=== PATIENT | female | born 1985 | race Caucasian/White ===

== ENCOUNTER 2019-08-04 05:14 | Emergency (ER) | payer OTHER, SELFPAY ==
[2019-08-04 05:17] VITALS: BP 122/105; PULSE 90; RESP 20; TEMP 36.5; O2SAT 98
[2019-08-04 06:25] VITALS: BP 143/91; PULSE 92; RESP 22; O2SAT 96
[2019-08-04 06:34] VITALS: PULSE 82; RESP 18; O2SAT 99
[2019-08-04] MEDS: predniSONE 20 MG TABLET 60 MG PO (06:54)
[2019-08-04] MEDS: ALBUTEROL SULFATE NEB 2.5 MG/0.5 ML INH 10 MG INHALATION (06:54)
[2019-08-04] MEDS: IPRATROPIUM BR 0.02% INH SOLN 0.5 MG/2.5 ML VIAL 1 MG INHALATION (06:55)
[2019-08-04 08:00] VITALS: BP 142/80; PULSE 92; RESP 19; O2SAT 100
--- NOTE | 2019-08-04 09:38 | ED.GENADULT ---
HPI - General Adult General Chief complaint: Asthma Stated complaint: ASTHMA Time Seen by Provider: 08/04/19 06:21 Source: patient Mode of arrival: ambulatory Limitations: no limitations History of Present Illness HPI narrative: 34-year-old with a history of asthma here with complaints of shortness of breath and cough for past few days. Patient states that she has been using albuterol inhaler with no relief. She denies any fever or chills. Cough is nonproductive. Onset (ago): day(s) (2) Location: chest Severity: moderate Relieving factors: none Exacerbating factors: none Associated symptoms: denies other symptoms Related Data Allergies Allergy/AdvReac Type Severity Reaction Status Date / Time latex Allergy Unknown Unknown Verified 08/04/19 05:19 Review of Systems Review of Systems: All systems reviewed & are unremarkable except as noted in HPI and below Constitutional: Constitutional: Reports no additional constitutional complaints Eyes: Eyes: Reports no additional eye complaints ENT: Reports system reviewed and no additional complaints, except as documented Cardiovascular: Cardiovascular: Reports no additional cardiovascular complaints Respiratory: Respiratory: Reports no additional respiratory complaints Gastrointestinal: Gastrointestinal: Reports no additional gastrointestinal complaints [facility] Family History Family History (Updated 01/14/16 @ 23:21 by DOCTOR UNKNOWN) Mother Hypertension Family history of skin conditions Sibling Patient's brother is in good health Social History Social History Smoking status: Former smoker Smoking end date: 06/18/09 Alcohol intake: never Gender identity (if verbalized by the patient): Female Exam Narrative: Exam Narrative: GENERAL: Well-appearing, well-nourished, and in no acute distress. HEAD: Normo cephalic, atraumatic. EYES: PERRLA and EOMI. ENT: Nares clear, no rhinorrhea or epistaxis. Mucous membranes moist. NECK: Supple. CHEST: Bilateral wheeze on auscultation HEART: Regular rate and rhythm. No murmur heard. Normal peripheral pulses. ABDOMEN: Soft, non tender, nondistended, normal active bowel sounds. EXTREMITIES: Normal range of motion. No edema. SKIN: Warm, dry, no rash. NEURO: No focal deficits. Alert and oriented x3. PSYCH: Normal mood and affect. Course Course Emergency Course: Patient states she is feeling much better after 1 hour long treatment with albuterol and Atrovent. I reexamined the patient very faint wheeze on the right side left is clear. She does feel comfortable going home. I advised her to take prednisone as prescribed. And continue her home albuterol as needed. Vital Signs Vital signs: Vital Signs Temperature 36.5 C 08/04/19 05:17 Pulse Rate 90 08/04/19 05:17 Respiratory Rate 20 08/04/19 05:17 Blood Pressure 122/105 H 08/04/19 05:17 Pulse Oximetry 98 08/04/19 05:17 Temperature 36.5 C 08/04/19 05:17 Pulse Rate 92 08/04/19 08:00 Respiratory Rate 19 08/04/19 08:00 Blood Pressure 142/80 H 08/04/19 08:00 Pulse Oximetry 100 08/04/19 08:00 Medical Decision Making Vital Signs Vital Signs: Vital Signs Temperature 36.5 C 08/04/19 05:17 Pulse Rate 90 08/04/19 05:17 Respiratory Rate 20 08/04/19 05:17 Blood Pressure 122/105 H 08/04/19 05:17 Pulse Oximetry 98 08/04/19 05:17 Temperature 36.5 C 08/04/19 05:17 Pulse Rate 92 08/04/19 08:00 Respiratory Rate 19 08/04/19 08:00 Blood Pressure 142/80 H 08/04/19 08:00 Pulse Oximetry 100 08/04/19 08:00 Lab Data Labs: Influenza A Screen Negative Reference Range: Negative Influenza B Screen Negative Reference Range: Negative Discharge Plan Discharge Clinical Impression: Asthma with acute exacerbation Patient Disposition: Home, Self-Care Condition: Stable Instructions: Moderate and Severe Persistent Asthma (ED) Prescriptions: Tristen matos
[2019-08-04 09:54] VITALS: BP 129/93; PULSE 94; RESP 18; O2SAT 97
== END 2019-08-04 09:56 | disposition home or self-care (01) ==
PROVIDERS: Emergency Provider Family Medicine; PCP Family Medicine
DX: J45.901 Unspecified asthma with (acute) exacerbation (principal); Z87.891 Personal history of nicotine dependence
CPT/HCPCS: 87804; 99283; J7512

== ENCOUNTER 2020-08-08 13:12 | Observation (INO) | payer OTHER, SELFPAY ==
[2020-08-08] VITALS (15 sets, daily range): BP systolic 121–152; BP diastolic 73–100; PULSE 84–124; RESP 16–24; TEMP 36.6; O2SAT 92–100; BMI 45.6
--- NOTE | ~2020-08-08 | CT_ITS ---
EXAMINATION: CTA chest PE protocol EXAM DATE: 08/10/2020 10:33 INDICATION: Shortness of breath, tachycardia with asthma r/o PE. TECHNIQUE: Spiral CTA of the chest (pulmonary arteries) was performed with 100 cc Omnipaque 350 intr avenous contrast injection. Images were acquired during the pulmonary arterial phase. Coronal maxi mum intensity projection 3D-reconstructions were created by the technologist on dedicated workstation . Axial, coronal and sagittal reformatted images were reviewed. The dose-length product (DLP) for t his examination was 989.94 mGy-cm. The exposure was tailored according to patient size (auto mA exp osure control), and iterative reconstruction (ASIR) was used as additional dose reduction technique. Comparison is made to prior examination from 04/22/2016. FINDINGS: Pulmonary arteries are well opacified and without intraluminal filling defects. No thora cic aortic dissection. The right middle lobe is completely collapsed. There is subsegmental lingular and right lower lobe atelectasis and multi segmental left lower lobe atelectasis. There was similar appearance to scan in 2016, findings could be chronic or have recurred. There are no pleural or peric ardial effusions. Tracheobronchial tree is patent. There is no mediastinal, hilar or axillary lym phadenopathy. There is no pneumothorax. Heart normal in size. No evidence of coronary arterial calcification. Upper abdomen is unremarkable. There is mild thoracic spondylosis without osteoblas tic or osteolytic lesions identified. IMPRESSION: 1. Substantial multifocal basilar atelectasis without evidence of superimposed pneumonia. 2. No pulmonary emboli suspected. Reviewed, dictated and finalized at location B. ONAL FINANCIAL ADVISOR
--- NOTE | ~2020-08-08 | XR_ITS ---
EXAMINATION: XR chest 2V EXAM DATE: 08/09/2020 13:36 INDICATION: Asthma exacerbation. Shortness of breath. TECHNIQUE: Frontal and lateral projections of the chest obtained and reviewed. Comparison is made to prior examination from 01/26/2019. FINDINGS: Bibasilar airspace disease probably atelectasis given the volume loss. Pneumonia not exclu dable. No pneumothorax or pleural effusion. Cardiomediastinal silhouette is normal. There are no osse ous abnormalities identified. IMPRESSION: Low lung volume and bibasilar opacities more likely atelectasis than pneumonia. Reviewed, dictated and finalized at location B. TY COUNSELOR IMPRESSION: Low lung volume and bibasilar opacities more likely atelectasis hitesh n pneumonia.
[2020-08-08] MEDS: methylPREDNISolone SOD SUCC 125 MG VIAL IV PUSH (13:48)
[2020-08-08] MEDS: MAGNESIUM SULF 2 GM/WATER 50ML 2 GM/50 ML BAG IVPB (13:49)
[2020-08-08] MEDS: ALBUTEROL SULFATE NEB 2.5 MG/0.5 ML INH 10 MG INHALATION (13:57)
[2020-08-08] MEDS: IPRATROPIUM BR 0.02% INH SOLN 0.5 MG/2.5 ML VIAL 1 MG INHALATION (13:58)
--- NOTE | 2020-08-08 14:42 | ED.ASTHMA ---
HPI - Asthma General Chief Complaint: Asthma Stated Complaint: issues with my asthma Time Seen by Provider: 08/08/20 13:35 Source: patient Mode of arrival: ambulatory Limitations: no limitations History of Present Illness HPI Narrative: A 35-year-old female comes into the emergency department today with complaints of an asthma exacerbation. Patient states that she has been taking her breathing treatments to not much improvement. Patient had used it several times yesterday. She notes that she has been using it continuously today and still feeling very short of breath. Patient denies any fevers, chills, body aches or headaches. Related Data Allergies Allergy/AdvReac Type Severity Reaction Status Date / Time latex Allergy Unknown Unknown Verified 08/08/20 13:31 Review of Systems Review of Systems: Narrative: CONSTITUTIONAL: Denies fever, chills, or sweats. EYES: Denies visual changes, redness, or discharge. ENT: Denies rhinorrhea, congestion, sore throat, or otalgia. CARDIOVASCULAR: Denies chest pain, palpitations, or edema. RESPIRATORY: Denies cough. Endorses shortness of breath GASTROINTESTINAL: Denies abdominal pain, nausea, vomiting, or diarrhea. GENITOURINARY: Denies dysuria or hematuria. SKIN: Denies rash or itching. MUSCULOSKELETAL: Denies back pain, joint pain, or myalgia. NEUROLOGIC: Denies headache, numbness, dizziness, or weakness. PSYCHIATRIC: Denies anxiety or depression. [facility], [facility] Family History Family History Mother Hypertension Family history of skin conditions Sibling Patient's brother is in good health Social History Social History Smoking status: Former smoker Smoking end date: 06/18/09 Alcohol intake: never Gender identity (if verbalized by the patient): Female Exam Narrative: Exam Narrative: GENERAL: Well-appearing, well-nourished, and in mild respiratory distress. HEAD: Normocephalic, atraumatic. EYES: PERRLA and EOMI. ENT: Nares clear, no rhinorrhea or epistaxis. Mucous membranes moist. NECK: Supple. No adenopathy or masses. No carotid bruits or JVD CHEST: Respiratory distress, tachypnea, diminished lung sounds diffusely, wheezing heard throughout. HEART: Regular rate and rhythm. No murmur heard. Normal peripheral pulses. ABDOMEN: Soft, nontender, nondistended, normal active bowel sounds. EXTREMITIES: Normal range of motion. No edema. SKIN: Warm, dry, no rash. NEURO: No focal deficits. Alert and oriented x3. PSYCH: Normal mood and affect. Course Consultations Consultation #1: Case discussed with ABDON Campos for hospitalist services. Patient still feeling very short of breath in spite of hour-long breathing treatment, Solu-Medrol and magnesium. Feel she would benefit from observation for continued breathing treatments and steroids. Beth after discussion agrees to accept patient for observation. Time: 15:44 Vital Signs Vital signs: Vital Signs Temperature 36.6 C 08/08/20 13:19 Pulse Rate 124 H 08/08/20 13:19 Respiratory Rate 20 08/08/20 13:19 Blood Pressure 122/75 08/08/20 13:19 Pulse Oximetry 92 08/08/20 13:19 Temperature 36.6 C 08/08/20 13:19 Pulse Rate 112 H 08/08/20 15:55 Respiratory Rate 20 08/08/20 15:55 Blood Pressure 132/92 H 08/08/20 15:55 Pulse Oximetry 100 08/08/20 15:55 MDM - Asthma MDM Narrative Medical decision making narrative: In brief this 35-year-old female came into the emergency department with complaints of shortness of breath. Patient appeared to be having an asthma exacerbation. On exam she was in respiratory distress. Patient given an hour-long breathing treatment 10 mg of albuterol and 1 mg of the Pratropium. Patient also given 125 mg Solu-Medrol and 2 g of IV magnesium. After all this she did have an improvement but was still very wheezy and struggling to breathe. Because of this we will plan for observati
[2020-08-08 16:05] LABS: Basophils Absolute Auto 0.1 K/mm3 (0.0-0.1); Eosinophils Absolute Auto 0.5 K/mm3 (0-0.3); Eosinophils Percent Auto 3.8 % (0-4.4); Hematocrit 50.7 % (37.0-47.0); Hemoglobin 16.6 g/dL (12.0-15.0); Immature Granulocyte Absolute 0.03 K/mm3 (0.00-0.031); Immature Granulocyte Percent A 0.2 % (0-0.5); Lymphocytes Absolute Auto 0.92 K/mm3 (0.9-3.2); Lymphocytes Percent Auto 7.6 % (18.3-44.2); Mean Corpuscular HGB Conc 32.7 g/dl (32-36); Mean Corpuscular Hemoglobin 29.3 pg (26-34); Mean Corpuscular Volume 89.4 fl (80-100); Monocytes Absolute Auto 0.3 K/mm3 (0.1-0.6); Monocytes Percent Auto 2.2 % (2.6-8.5); Neutrophils Absolute Auto 10.3 K/mm3 (1.3-6.7); Neutrophils Percent Auto 85.2 % (45.5-73.1); Platelet Count Result 349 k/mm3 (150-375); Red Blood Count 5.67 M/mm3 (4.2-5.4); White Blood Count 12.1 K/mm3 (4.5-10.0)
[2020-08-08 16:18] LABS: Anion Gap 6 mmol/L (8-16); Blood Urea Nitrogen 11 mg/dL (7-17); Calcium 9.4 mg/dL (8.4-10.2); Carbon Dioxide 29 mmol/L (22-30); Chloride 106 mmol/L (98-107); Estimated CRCL calculation 88 ml/min; Estimated Glomerular Filt Rate 51; Glucose 109 mg/dL (65-105); Magnesium 2.6 mg/dL (1.6-2.3); Potassium 4.8 mmol/L (3.4-5.0); Sodium 141 mmol/L (137-145)
--- NOTE | 2020-08-08 19:36 | ADMGEN ---
This patient, Abena Chandra, was admitted to Medical Room 258-. Patient/family oriented to hospital policies and general routines including ID bracelet, bed and alarms, visiting hours, pain management, procedures, bathroom and other care routines, personal items, smoking policy, room service/diet, and visiting hours. Information on how to activate the Rapid Response Team has been discussed. Patient/Family are encouraged to report perceived risks to care and to ask questions if they do not understand what they are told or what they should do.
[2020-08-08] MEDS: ALBUTEROL SULFATE NEB 2.5 MG/0.5 ML INH 5 MG INHALATION ×2 (20:15→23:53)
--- NOTE | 2020-08-08 20:15 | PM.IMHP ---
H&P: HPI History of Present Illness Date/Time: 08/08/20 20:15 Chief Complaint: Shortness of breath. Narrative: This is a 35-year-old female with asthma who presented to the emergency department earlier today from home with complaints of shortness of breath. Her asthma is typically well controlled however she reports 2 episodes of bronchitis in the recent months, once in April 2020 and the other just last month in which she was treated with steroids. She has been using her nebulizer once a day since that time and has been doing okay up until last evening when she began to wheeze pretty significantly. She had a cough throughout most of the night and slept poorly because of that. This morning she received no help from her nebulizer and thus she came in for evaluation. Steroids, magnesium sulfate, and a continuous nebulizer given in the emergency department did improve her symptoms however she continues to have diffuse wheezing and is still somewhat short of breath and as such she is being admitted for further treatment. She does suffer from chronic sinus issues and postnasal drip, which is unchanged. She has had some mild chest tightness with the wheezing but nothing significant. She has not had fever, chills, sweats, pleuritic pain, palpitations, nausea, or vomiting. No dysphagia or concerns for aspiration. No sick contacts or exposure to COVID-19. She has never been hospitalized or intubated for her asthma. Review of Systems Review of Systems: Narrative: Twelve systems were reviewed with pertinent positives and negatives as per HPI. She suffers from migraine headaches and gets those about 4 times per month. Last menstrual period was 07/20/2020. Except as documented, all other systems were reviewed and are negative. [facility] Past Medical History Medical History (Updated 08/08/20 @ 23:07 by Beth Kaye PA-C) Asthma Migraines Surgical History Surgical History (Updated 08/08/20 @ 23:03 by Beth Kaye PA-C) History of incision and drainage Flank abscess. Family History Family History Mother Family history of skin conditions Hypertension Graves disease Sibling Patient's brother is in good health Father Hypertension Son Asthma Daughter Eczema Social History Social History (Updated 08/08/20 @ 23:03 by Beth Kaye PA-C) Social History: Surrogate decision maker: Yuniel Chandra, . Code status: Full code. Smoking packs per day: 0.5 Smoking cigarettes per day: 10.0 Years smoked: 9 Smoking pack-years: 4.50 Smoking status: Former smoker Tobacco type: cigarettes Smoking end date: 06/18/09 Alcohol intake: never Additional living arrangements comments: The patient lives in [place] with her , 2 children (3 and 7), and her mother. Additional occupation/education comments: [employer] mother. Gender identity (if verbalized by the patient): Female Spiritual care concerns: No Meds Home Medications and Allergies Home Medications Medication Instructions Recorded Confirmed Type albuterol sulfate 2.5 mg CONTINUOUS NEBULIZATION QID 08/08/20 08/08/20 History PRN albuterol sulfate [Ventolin HFA] 2 puff INHALATION DAILY PRN 08/08/20 08/08/20 History budesonide-formoterol [Symbicort] 2 puff INHALATION BID 08/08/20 08/08/20 History cetirizine [Zyrtec] 10 mg PO DAILY 08/08/20 08/08/20 History diphenhydramine HCl [Benadryl 25 mg PO HS 08/08/20 08/08/20 History Allergy] montelukast 10 mg HS 08/08/20 08/08/20 History topiramate 50 mg PO BID 08/08/20 08/08/20 History Allergies Allergy/AdvReac Type Severity Reaction Status Date / Time latex Allergy Unknown Unknown Verified 08/08/20 19:43 Vital Signs Vital Signs - 24 hr 08/08/20 13:19 08/08/20 13:30 08/08/20 13:49 Temperature 97.8 F Pulse Rate 124 H 122 H Respiratory Rate 20 20 Blood Pressure 122/75 133/100 H Pulse Ox
[2020-08-08] MEDS: IPRATROPIUM BR 0.02% INH SOLN 0.5 MG/2.5 ML VIAL INHALATION ×2 (20:16→23:53)
[2020-08-08 23:54] LABS: Alveolar/Arterial O2 Gradient 53.9 mmHg; Base Excess ABG -0.3 mEq/l (+/-2.0); Carboxyhemoglobin 0.4 % THb (0-2.0); Fractional Inspired Oxygen 21 %; HCO3 ABG 23.6 mEq/l (22.0-26.0); Methemoglobin ABG 0.3 %THb (0-1.5); Oxygen Content ABG 19.8 %vol (16.0-22.0); Oxyhemoglobin 88.4 % THb (90.0-100.0); PCO2 ABG 36.5 mmHg (35.0-45.0); PO2 ABG 52.1 mmHg (80.0-100.0); PO2 FiO2 Ratio Arterial Blood 2.48 %; Reduced Hemoglobin 10.9 %THb (0-5.0); pH ABG 7.428 (7.350-7.450)
[2020-08-08 23:55] LABS: Device ROOM AIR; Modified Allen's Test Pass; Site Drawn RIGHT RADIAL
[2020-08-09] VITALS (18 sets, daily range): BP systolic 130–131; BP diastolic 66–78; PULSE 88–138; RESP 16–22; TEMP 36.3–37.2; O2SAT 90–94
[2020-08-09] MEDS: methylPREDNISolone SOD SUCC 125 MG VIAL 60 MG IV PUSH ×2 (00:08→05:36)
[2020-08-09] MEDS: SODIUM CHLORIDE 0.9% IV 1,000 ML 100 ML IV CONT (00:08)
[2020-08-09] MEDS: ALBUTEROL SULFATE NEB 2.5 MG/0.5 ML INH 5 MG INHALATION ×2 (04:32→10:04)
[2020-08-09] MEDS: IPRATROPIUM BR 0.02% INH SOLN 0.5 MG/2.5 ML VIAL INHALATION ×4 (04:32→21:45)
[2020-08-09 05:41] LABS: Basophils Percent Auto 0.2 % (0.2-1.2); Hematocrit 47.4 % (37.0-47.0); Hemoglobin 15.4 g/dL (12.0-15.0); Immature Granulocyte Percent A 0.8 % (0-0.5); Lymphocytes Absolute Auto 1.27 K/mm3 (0.9-3.2); Mean Corpuscular HGB Conc 32.5 g/dl (32-36); Mean Corpuscular Hemoglobin 28.6 pg (26-34); Mean Corpuscular Volume 87.9 fl (80-100); Mean Platelet Volume 9.9 fl (7.4-10.4); Monocytes Absolute Auto 0.1 K/mm3 (0.1-0.6); Monocytes Percent Auto 0.7 % (2.6-8.5); Neutrophils Absolute Auto 11.2 K/mm3 (1.3-6.7); Neutrophils Percent Auto 88.3 % (45.5-73.1); Platelet Count Result 363 k/mm3 (150-375); Red Blood Count 5.39 M/mm3 (4.2-5.4); Red Cell Distribution Width 13.8 % (11.5-14.5); White Blood Count 12.7 K/mm3 (4.5-10.0)
[2020-08-09 05:52] LABS: Anion Gap 6 mmol/L (8-16); Blood Urea Nitrogen 11 mg/dL (7-17); Calcium 9.4 mg/dL (8.4-10.2); Carbon Dioxide 22 mmol/L (22-30); Chloride 110 mmol/L (98-107); Estimated CRCL calculation 130 ml/min; Estimated Glomerular Filt Rate > 60; Glucose 142 mg/dL (65-105); Sodium 138 mmol/L (137-145)
[2020-08-09 07:19] LABS: Potassium 4.1 mmol/L (3.4-5.0)
--- NOTE | 2020-08-09 10:00 | PC.NURSE ---
Patient has been tachycardic on monitor. Jovana COPPOLA here on rounds and aware of elevated heartrate.
--- NOTE | 2020-08-09 10:49 | ECG_ITS ---
Measurements Intervals [place] Rate: 113 P: 46 SC: 152 QRS: 5 QRSD: 84 T: 23 QT: 283 QTc: 389 Interpretive Statements SINUS TACHYCARDIA BORDERLINE T WAVE ABNORMALITY- INFERIOR LEADS BASELINE ARTIFACT- I, II, III, AVR, AVL, AVF, V1, V6 ABNORMAL ECG Electronically Signed On 08-09-2020 11:22:24 MINE PROMOTOR by Benji Pal D.O.
--- NOTE | 2020-08-09 10:51 | PM.IMPN ---
Progress Note: A&P Assessment and Plan (1) Asthma with acute exacerbation: Qualifiers: Asthma persistence: persistent Asthma severity: severe Qualified Code(s): J45.51 - Severe persistent asthma with (acute) exacerbation Code(s): J45.901 - Unspecified asthma with (acute) exacerbation Status: Acute Assessment and Plan: Clinically it appears the patient is undergoing asthma exacerbation -her lung exam is much improved compared to the prior notes, no wheezing today -PFTs are still low at 320 with a predicted of 478 -she is on Solu-Medrol but I will decrease this to 40 mg b.i.d. and hopes to transition to oral tomorrow -will check chest x-ray -will switch albuterol to Xopenex due to sinus tachycardia -continue Symbicort -encouraged patient to reestablish with her pulmonology group -PE seems less likely. Will obtain EKG, decreased steroids, and stop albuterol. If she continues to be tachycardic with these changes, consider D-dimer or CTA. She has no history of clotting. (2) Sinus tachycardia: Code(s): R00.0 - Tachycardia, unspecified Status: Acute Assessment and Plan: Likely due to asthma exacerbation and treatment -will check EKG -monitor on telemetry -see above (3) Polycythemia: Code(s): D75.1 - Secondary polycythemia Status: Acute Assessment and Plan: Noted on labs and appears to be new since 2019 -doubt it is due to chronic hypoxia but could be -would recommend follow-up with wedding cake designer outpatient (4) Elevated serum creatinine: Code(s): R79.89 - Other specified abnormal findings of blood chemistry Status: Acute Assessment and Plan: Resolved (5) Migraines: Code(s): G43.909 - Migraine, unspecified, not intractable, without status migrainosus Status: Inactive Assessment and Plan: No acute headache, continue Topamax Time Spent With Patient Time with patient: 25 - 35 minutes Subjective Date/time seen: 08/09/20 10:51 Interval history: Pt is a 35-year-old female here with an asthma exacerbation. Patient was seen today and states she is feeling much better. She does not feel like she is wheezing as much and feels like she can't take a deep breath. She states she has a history of hospitalizations for asthma but does not see a head tennis coach anymore since her last one was Dr. Milligan. Pt denies nausea, vomiting, fevers, chills, constipation, diarrhea, chest pain, sob, or abdominal pain. She states she has never had a history of blood clots and does not have any palpitations at this time. She says she does peak flows at home. Review of Systems Review of Systems: All systems reviewed & are unremarkable except as noted in HPI and below Exam Narrative: Exam Narrative: General: Overweight pt resting in bed in NAD HEENT: normocephalic Neck: supple Neuro: Alert and oriented x4 CV:Sinus tachycardia that appears to be NSR on telemetry. Sinus tachy up to 150 but averages 120-130. Seems to be constant and not really correlating with albuterol times Resp:CTA with no wheezing. Breath sounds bilaterally. Pt able to speak in full sentences without conversational dyspnea Abd: Soft, non distended. No pain to palpation. Positive bowel sounds Extremities: No swelling, erythema, or pain to palpation. Objective Data Vital Signs Vital Signs: Vital Signs - 24 hr 08/08/20 13:19 08/08/20 13:30 08/08/20 13:49 Temperature 97.8 F Pulse Rate 124 H 122 H Respiratory Rate 20 20 Blood Pressure 122/75 133/100 H Pulse Oximetry 92 92 93 08/08/20 13:58 08/08/20 14:53 08/08/20 15:17 Temperature Pulse Rate 121 H 96 106 H Respiratory Rate 24 H 16 22 H Blood Pressure 152/73 H 135/97 H Pulse Oximetry 96 96 08/08/20 15:55 08/08/20 17:02 08/08/20 17:42 Temperature Pulse Rate 112 H 106 H 111 H Respiratory Rate 20 22 H 22 H Blood Pressure 132/92 H 121/86 124/96 H Pulse Oximetry 100 100
[2020-08-09] MEDS: TOPIRAMATE 25 MG TABLET 50 MG PO ×2 (11:04→20:39)
[2020-08-09 13:38] LABS: Troponin I < 0.012 ng/mL (0.000-0.034)
[2020-08-09] MEDS: LEVALBUTEROL NEB 1.25 MG/3 ML 0.63 MG INHALATION ×2 (14:40→21:48)
--- NOTE | 2020-08-09 15:00 | PC.NURSE ---
HR continues to increase with activity of walking in room or to bathroom. Telemetry noted to show HR in the 160s. Patient denies symptoms. Returned to bed and HR back in the 110s after resting. Called and left a message for Jovana COPPOLA regarding increased heart rate with activity.
[2020-08-09 16:41] LABS: Troponin I < 0.012 ng/mL (0.000-0.034)
[2020-08-09] MEDS: methylPREDNISolone SOD SUCC 40 MG VIAL IV PUSH (20:41)
[2020-08-09] MEDS: MONTELUKAST SODIUM 10 MG TABLET BY MOUTH (20:42)
[2020-08-09 21:19] LABS: Troponin I < 0.012 ng/mL (0.000-0.034)
[2020-08-10] VITALS (8 sets, daily range): BP systolic 115; BP diastolic 61; PULSE 87–102; RESP 16–20; TEMP 36.1; O2SAT 93–94
[2020-08-10] MEDS: IPRATROPIUM BR 0.02% INH SOLN 0.5 MG/2.5 ML VIAL INHALATION ×2 (02:56→08:29)
[2020-08-10] MEDS: LEVALBUTEROL NEB 1.25 MG/3 ML 0.63 MG INHALATION ×2 (02:56→08:29)
[2020-08-10 05:43] LABS: Basophils Percent Auto 0.2 % (0.2-1.2); Hemoglobin 14.1 g/dL (12.0-15.0); Lymphocytes Absolute Auto 1.34 K/mm3 (0.9-3.2); Lymphocytes Percent Auto 6.8 % (18.3-44.2); Mean Corpuscular Hemoglobin 28.1 pg (26-34); Mean Corpuscular Volume 87.8 fl (80-100); Mean Platelet Volume 10.4 fl (7.4-10.4); Monocytes Absolute Auto 0.6 K/mm3 (0.1-0.6); Monocytes Percent Auto 3.1 % (2.6-8.5); Neutrophils Absolute Auto 17.4 K/mm3 (1.3-6.7); Neutrophils Percent Auto 88.9 % (45.5-73.1); Platelet Count Result 377 k/mm3 (150-375); Red Blood Count 5.01 M/mm3 (4.2-5.4); Red Cell Distribution Width 14.1 % (11.5-14.5); White Blood Count 19.6 K/mm3 (4.5-10.0)
[2020-08-10] MEDS: methylPREDNISolone SOD SUCC 40 MG VIAL IV PUSH (08:58)
[2020-08-10] MEDS: LORATADINE 10 MG TABLET PO (08:58)
[2020-08-10] MEDS: TOPIRAMATE 25 MG TABLET 50 MG PO (08:59)
[2020-08-10] MEDS: ACETAMINOPHEN/ASPIRIN/CAFFEINE 250-250-65 MG TABLET 1 TABLET PO (11:05)
--- NOTE | 2020-08-10 11:06 | PM.DS ---
DS: Admitting Diagnosis Admitting Diagnosis Admitting Diagnosis: Asthma exacerbation DS: Discharge Diagnosis Discharge Diagnosis (1) Asthma with acute exacerbation: Qualifiers: Asthma persistence: persistent Asthma severity: severe Qualified Code(s): J45.51 - Severe persistent asthma with (acute) exacerbation Code(s): J45.901 - Unspecified asthma with (acute) exacerbation Status: Acute Assessment and Plan: Date of Admission 08/08/20 Date of Discharge/DOS 08/10/20 Ms. Chandra is a pleasant 35yo F with history of asthma who presented to the ED for evaluation of cough, wheezing, and shortness of breath. Chest XR showed low lung volumes and evidence of atelectasis. Clinically her symptoms appeared most consistent with an asthma exacerbation. She was treated with IV steroids and nebulized bronchodilator therapy with which she showed clinical improvement. Continued on her home Symbicort. She had sinus tachycardia that persisted despite weaning steroids and switching albuterol to Xopenex, which prompted a CTA chest to rule out PE. CTA chest demonstrated substantial multifocal basilar atelectasis without evidence of superimposed pneumonia, no evidence of PE. She was improved with the therapy outlined above and was comfortable with plan for discharge home. She was hemodynamically stable for discharge on 08/10/20 with instructions to follow up with her primary care provider as well as re-establish with a amusement machine mechanic. Discharged with tapered course of oral prednisone and she has albuterol nebulizers at home. (2) Sinus tachycardia: Code(s): R00.0 - Tachycardia, unspecified Status: Acute Assessment and Plan: Asymptomatic. Suspect related to acute asthma exacerbation and neb treatments. EKG and cardiac monitoring with telemetry shows sinus tachycardia. CTA chest without evidence of PE. (3) Polycythemia: Code(s): D75.1 - Secondary polycythemia Status: Acute Assessment and Plan: Follow up with PCP for lab monitoring. Hematology referral outpatient if needed. (4) Elevated serum creatinine: Code(s): R79.89 - Other specified abnormal findings of blood chemistry Status: Acute Assessment and Plan: Resolved. (5) Migraines: Code(s): G43.909 - Migraine, unspecified, not intractable, without status migrainosus Status: Inactive Assessment and Plan: Patient had manageable headache day of discharge and was given Excedrin. Maintained on her home Topiramate. DS: Summary Hospital Course Hospital Course: See above. Time Spent with Patient Time attestation: Total time spent providing and/or coordinating discharge services: 40 minutes Exam Narrative: Exam Narrative: General: Female resting comfortably in bed in no acute distress. HEENT: normocephalic, EOMI, oral mucosa moist. Neck: supple Neuro: Alert and oriented x4 CV: Heart rate is tachycardic, rhythm is regular. Telemetry review shows resting HR in low 100s, up to 130s-140s with walking to the bathroom. Resp: Clear to auscultation without wheezing, respirations even and nonlabored, able to speak in full sentences without conversational dyspnea Abd: Soft, non distended. No pain to palpation. Positive bowel sounds Extremities: No swelling, erythema, or pain to palpation. DS: Data Data Completed and Pending Labs on day of discharge: Last Vital Signs Temp 97.0 F L 08/10/20 06:00 Pulse 90 08/10/20 08:40 Resp 18 08/10/20 08:40 BP 115/61 08/10/20 06:00 Pulse Ox 94 08/10/20 08:29 ITS Impressions Chest X-Ray 08/09/20 13:56 IMPRESSION: Low lung volume and bibasilar opacities more likely atelectasis than pneumonia. Chest CTA 08/10/20 10:37 IMPRESSION: 1.
== END 2020-08-10 12:50 | disposition home or self-care (01) ==
LOC: ANHED 17:13 → ANH2MED 18:37
PROVIDERS: Physician Assistant; Admitting Provider Internal Medicine; Emergency Provider Emergency Medicine; PCP Family Medicine; Visit Provider Physician Assistant
DX: J45.51 Severe persistent asthma with (acute) exacerbation (principal); D75.1 Secondary polycythemia; E66.01 Morbid (severe) obesity due to excess calories; G43.909 Migraine, unspecified, not intractable, without status migrainosus; R00.0 Tachycardia, unspecified; Z68.42 Body mass index [BMI] 45.0-49.9, adult; Z87.891 Personal history of nicotine dependence; Z23 Encounter for immunization
CPT/HCPCS: 36415; 36600; 71046; 71275; 80048; 82375; 82805; 83050; 83735; 84484; 85025; 90471; 90653; 93005; 94640; 96365; 96374; 96375; 96376; 99285; A9270; G0008; G0378; J2920; J2930; J3475; J7030; Q9967

== ENCOUNTER 2021-05-07 20:10 | Emergency (ER) | payer OTHER, SELFPAY ==
[2021-05-07 20:17] VITALS: BP 151/73; PULSE 105; RESP 20; TEMP 36.5; O2SAT 97
[2021-05-07] MEDS: IPRATROPIUM BR 0.02% INH SOLN 0.5 MG/2.5 ML VIAL 1.5 MG INHALATION (22:05)
[2021-05-07] MEDS: ALBUTEROL SULFATE NEB 2.5 MG/0.5 ML INH 20 MG INHALATION (22:05)
[2021-05-07 22:06] VITALS: PULSE 112; RESP 18
[2021-05-07] MEDS: predniSONE 20 MG TABLET 40 MG PO (22:19)
--- NOTE | 2021-05-07 23:04 | ED.ASTHMA ---
HPI - Asthma General Chief Complaint: Asthma Stated Complaint: sob Time Seen by Provider: 05/07/21 21:36 Source: patient History of Present Illness HPI Narrative: Patient presents with concern for asthma exacerbation. Reports a history of asthma has flareups requiring ER evaluation in approximately once a year usually around this time and attributes it to the weather change. She has been feeling short of breath and having a cough since yesterday she has been attempting her nebulized therapies at home however did not appear to be effective so she came to the ER for evaluation. She does report she is and is not sure how far along she is but believes she is very early. She has some nausea associated with her she denies any chest pain Related Data Home Medications Medication Instructions Recorded Confirmed albuterol sulfate 2.5 mg CONTINUOUS NEBULIZATION QID 08/08/20 08/08/20 PRN albuterol sulfate [Ventolin HFA] 2 puff INHALATION DAILY PRN 08/08/20 08/08/20 budesonide-formoterol [Symbicort] 2 puff INHALATION BID 08/08/20 08/08/20 cetirizine [Zyrtec] 10 mg PO DAILY 08/08/20 08/08/20 diphenhydramine HCl [Benadryl 25 mg PO HS 08/08/20 08/08/20 Allergy] Allergies Allergy/AdvReac Type Severity Reaction Status Date / Time latex Allergy Unknown Unknown Verified 05/07/21 20:40 Review of Systems Review of Systems: CONSTITUTIONAL: Denies fever, chills, or sweats. EYES: Denies visual changes, redness, or discharge. ENT: Denies rhinorrhea, congestion, sore throat, or otalgia. CARDIOVASCULAR: Denies chest pain, palpitations, or edema. RESPIRATORY: Reports shortness of breath and cough GASTROINTESTINAL: Denies abdominal pain, vomiting, or diarrhea. GENITOURINARY: Denies dysuria or hematuria. SKIN: Denies rash or itching. MUSCULOSKELETAL: Denies back pain, joint pain, or myalgia. NEUROLOGIC: Denies headache, numbness, dizziness, or weakness. PSYCHIATRIC: Denies anxiety or depression. [facility] Past Medical History Medical History Asthma Migraines Surgical History Surgical History History of incision and drainage Flank abscess. Family History Family History Mother Family history of skin conditions Hypertension Graves disease Sibling Patient's brother is in good health Father Hypertension Son Asthma Daughter Eczema Social History Social History Social History: Surrogate decision maker: Yuniel Chandra, . Code status: Full code. Smoking packs per day: 0.5 Smoking cigarettes per day: 10.0 Years smoked: 9 Smoking pack-years: 4.50 Smoking status: Never smoker Tobacco type: cigarettes Smoking end date: 06/18/09 Alcohol intake: never Substance use: never Additional living arrangements comments: The patient lives in [place] with her , 2 children (3 and 7), and her mother. Additional occupation/education comments: [id number] mother. Gender identity (if verbalized by the patient): Female Spiritual care concerns: No Exam Narrative: GENERAL: Well-appearing, well-nourished, and in no acute distress. HEAD: Normocephalic, atraumatic. EYES: PERRLA and EOMI. ENT: Nares clear, no rhinorrhea or epistaxis. Mucous membranes moist. NECK: Supple. No masses. No JVD CHEST: Diffuse respiratory and expiratory wheezing in all lung mueller HEART: Regular tachycardia. No murmur heard. Normal peripheral pulses. ABDOMEN: Soft, nontender, nondistended, normal active bowel sounds. EXTREMITIES: Normal range of motion. No edema. SKIN: Warm, dry, no rash. NEURO: No focal deficits. Alert and oriented x3. PSYCH: Normal mood and affect. Course Reevaluation(s) Reevaluation #1: Patient reports feeling much improved repeat lung exam is clear to au
[2021-05-07 23:24] VITALS: PULSE 102; RESP 18
[2021-05-07 23:30] VITALS: BP 136/72; PULSE 103; RESP 18; O2SAT 94
--- NOTE | 2021-05-07 23:30 | PC.NURSE ---
Assumed care of pt at this time. Pt alert and upright on stretcher, states she feels better after breathing treatment. Pt updated on POC.
[2021-05-07 23:31] VITALS: O2SAT 94
== END 2021-05-08 00:21 | disposition home or self-care (01) ==
PROVIDERS: Emergency Provider Emergency Medicine; PCP Nurse Practitioner Family
DX: J45.901 Unspecified asthma with (acute) exacerbation (principal); Z87.891 Personal history of nicotine dependence
CPT/HCPCS: 94640; 99284; J7512

== ENCOUNTER 2021-05-09 13:29 | Outpatient (CLI) | payer OTHER, SELFPAY ==
--- NOTE | ~2021-05-09 | US_ITS ---
EXAMINATION: US OB <=14 wk fetus w TV DATE: 05/09/2021 13:51 INDICATION: Gestational dating TECHNIQUE: Real-time transabdominal and transvaginal obstetric ultrasound. FINDINGS: No prior studies for comparison. The uterus measures 11.3 x 6.1 x 7.8 cm. There is an intrauterine gestational sac, with pole id entified. The crown rump length measures 3.6 cm, which correlates with a estimated gestational age o f 10 weeks 4 days. heart tones are identified measuring 167 BPM. Right ovary is within normal limits. Left ovary is not visualized. IMPRESSION: 1. SL IUP with an EGA of 10 weeks, 4 days (EDC by current ultrasound of 12/01/2021). Reviewed, dictated and finalized at location A. [facility] SPECIALIST IMPRESSION: 1. SL IUP with an EGA of 10 weeks, 4 days (EDC by current ultrasound of 12/02/19).
== END 2021-05-09 13:30 ==
PROVIDERS: Visit Provider Student in an Organized Health Care Education/Training Program
DX: Z36.89 Encounter for other specified antenatal screening (principal); Z3A.10 10 weeks gestation of pregnancy
CPT/HCPCS: 76801; 76817

== ENCOUNTER 2021-05-17 17:44 | Emergency (ER) | payer OTHER, SELFPAY ==
[2021-05-17 17:48] VITALS: BP 145/105; PULSE 94; RESP 16; TEMP 36.7; O2SAT 100
[2021-05-17 23:01] VITALS: BP 145/87; PULSE 100; O2SAT 100
--- NOTE | 2021-05-18 00:12 | ED.GENADULT ---
HPI - General Adult General Chief complaint: Vaginal Bleeding Stated complaint: 11 weeks , bleeding Time Seen by Provider: 05/17/21 23:35 History of Present Illness HPI narrative: Patient 36-year-old female presents the emergency department with chief complaint of vaginal bleeding. The patient reports approximate 11 weeks she has had a confirmatory ultrasound that showed that she had a intrauterine has been performed fairly recently by her CERTIFIED FIRE INVESTIGATOR. The patient states that she started having some spotting this evening and some cramping throughout her abdomen states she is used less than 1 pad since the bleeding started. Patient states that she has limited cramping reports she has not passed any tissue patient reports that she has not had any complications during this . Related Data Home Medications Medication Instructions Recorded Confirmed albuterol sulfate 2.5 mg CONTINUOUS NEBULIZATION QID 08/08/20 08/08/20 PRN albuterol sulfate [Ventolin HFA] 2 puff INHALATION DAILY PRN 08/08/20 08/08/20 budesonide-formoterol [Symbicort] 2 puff INHALATION BID 08/08/20 08/08/20 cetirizine [Zyrtec] 10 mg PO DAILY 08/08/20 08/08/20 diphenhydramine HCl [Benadryl 25 mg PO HS 08/08/20 08/08/20 Allergy] Allergies Allergy/AdvReac Type Severity Reaction Status Date / Time latex Allergy Unknown Unknown Verified 05/07/21 20:40 Review of Systems Review of Systems: A 10 system review of systems was completed on the patient and is negative except for what is stated in the HPI. Nursing and ancillary documentation was reviewed. PENDING SALE TO [facility] Past Medical History Medical History Asthma Migraines Surgical History Surgical History History of incision and drainage Flank abscess. Family History Family History Mother Family history of skin conditions Hypertension Graves disease Sibling Patient's brother is in good health Father Hypertension Son Asthma Daughter Eczema Social History Social History Social History: Surrogate decision maker: Yuniel Chandra, . Code status: Full code. Smoking packs per day: 0.5 Smoking cigarettes per day: 10.0 Years smoked: 9 Smoking pack-years: 4.50 Smoking status: Never smoker Tobacco type: cigarettes Smoking end date: 06/18/09 Alcohol intake: never Substance use: never Additional living arrangements comments: The patient lives in [place] with her , 2 children (3 and 7), and her mother. Additional occupation/education comments: [id number] mother. Gender identity (if verbalized by the patient): Female Spiritual care concerns: No Exam Narrative: GENERAL: Well-appearing, well-nourished, and in no acute distress. HEAD: Normocephalic, atraumatic. EYES: PERRLA and EOMI. ENT: Nares clear, no rhinorrhea or epistaxis. Mucous membranes moist. NECK: Supple. CHEST: Clear to auscultation. No respiratory distress. HEART: Regular rate and rhythm. No murmur heard. Normal peripheral pulses. ABDOMEN: Soft, nontender, nondistended, normal active bowel sounds. EXTREMITIES: Normal range of motion. No edema. SKIN: Warm, dry, no rash. NEURO: No focal deficits. Alert and oriented x3. PSYCH: Normal mood and affect. Course Course Emergency Course: Month ultrasound showed a intrauterine with cardiac activity and movement. Vital Signs Vital signs: Vital Signs Temperature 36.7 C 05/17/21 17:48 Pulse Rate 94 05/17/21 17:48 Respiratory Rate 16 05/17/21 17:48 Blood Pressure 145/105 H 05/17/21 17:48 Pulse Oximetry 100 05/17/21 17:48 Temperature 36.7 C 05/17/21 17:48 Pulse Rate 100 05/17/21 23:01 Respiratory Rate 16 05/17/21 17:48
[2021-05-18 00:21] LABS: Basophils Absolute Auto 0.1 K/mm3 (0.0-0.1); Basophils Percent Auto 0.4 % (0.2-1.2); Eosinophils Absolute Auto 0.7 K/mm3 (0-0.3); Eosinophils Percent Auto 4.8 % (0-4.4); Hemoglobin 14.3 g/dL (12.0-15.0); Immature Granulocyte Absolute 0.05 K/mm3 (0.00-0.031); Immature Granulocyte Percent A 0.3 % (0-0.5); Lymphocytes Absolute Auto 3.32 K/mm3 (0.9-3.2); Lymphocytes Percent Auto 22.7 % (18.3-44.2); Mean Corpuscular HGB Conc 33.3 g/dl (32-36); Mean Corpuscular Hemoglobin 29.7 pg (26-34); Mean Corpuscular Volume 89.2 fl (80-100); Mean Platelet Volume 9.5 fl (7.4-10.4); Monocytes Absolute Auto 0.8 K/mm3 (0.1-0.6); Monocytes Percent Auto 5.5 % (2.6-8.5); Neutrophils Absolute Auto 9.7 K/mm3 (1.3-6.7); Neutrophils Percent Auto 66.3 % (45.5-73.1); Platelet Count Result 358 k/mm3 (150-375); Red Blood Count 4.82 M/mm3 (4.2-5.4); Red Cell Distribution Width 15.2 % (11.5-14.5); White Blood Count 14.7 K/mm3 (4.5-10.0)
[2021-05-18 00:26] LABS: Anion Gap 7 mmol/L (8-16); Blood Urea Nitrogen 4 mg/dL (7-17); Calcium 9.2 mg/dL (8.4-10.2); Carbon Dioxide 21 mmol/L (22-30); Chloride 105 mmol/L (98-107); Estimated CRCL calculation 144 ml/min; Estimated Glomerular Filt Rate > 60; Glucose 97 mg/dL (65-110); Potassium 3.7 mmol/L (3.4-5.0); Sodium 133 mmol/L (137-145)
[2021-05-18 01:00] LABS: Add Urine Microscopic? YES; Appearance Urine Cloudy (Clear); Bacteria Urine 1+ /hpf; Bilirubin Urine Negative (Negative); Blood Urine 3+ (Negative); Color Urine Yellow (Yellow); Glucose Urine UA Negative (Negative); Ketones Urine Negative (Negative); Leukocyte Esterase Ur 3+ LEU/UL (Negative); Mucus Urine Few /lpf; Nitrate Urine Negative (Negative); Protein Urine 1+ mg/dL (Negative); Squamous Epithelial Cell Urine Many /hpf (Few); Urobilinogen Urine Negative mg/dL (<2.0); WBC Urine 51-75 /hpf
[2021-05-18 02:41] VITALS: BP 121/83; PULSE 97; RESP 18; O2SAT 100
== END 2021-05-18 02:41 | disposition home or self-care (01) ==
PROVIDERS: Emergency Provider Emergency Medicine; PCP Nurse Practitioner Family
DX: O20.0 Threatened abortion (principal); Z3A.11 11 weeks gestation of pregnancy; O23.41 Unspecified infection of urinary tract in pregnancy, first trimester; N39.0 Urinary tract infection, site not specified
CPT/HCPCS: 36415; 80048; 81001; 84702; 85025; 85461; 87077; 87086; 87088; 99283

== ENCOUNTER 2021-07-06 10:25 | Outpatient (CLI) | payer OTHER, SELFPAY ==
[2021-07-06 20:07] LABS: Vitamin D 25 Hydroxy < 12.8 ng/mL
[2021-07-06 20:18] LABS: Hepatitis B Surface Antigen Negative (Negative); Rubella IgG Antibody 14.3 IU/ML
[2021-07-06 20:25] LABS: HIV 1/2 Ab P24 Ag Result Negative (Negative)
[2021-07-06 20:33] LABS: Hepatitis C Virus Antibody Negative (Negative)
[2021-07-07 11:37] LABS: Rapid Plasma Reagin Non-Reactive (NonReactive)
[2021-07-13 00:44] LABS: Hematocrit 44.2 % (35.0-45.0); Hemoglobin 13.6 g/dL (11.7-15.5); MCH 29.7 pg (27.0-33.0); MCV 96.5 fL (80.0-100.0); RDW 16.6 % (11.0-15.0); Red Blood Cell Count 4.58 Mill/uL (3.80-5.10)
[2021-07-19 16:51] LABS: CF Result NEGATIVE (NEGATIVE); Ethnicity NG
== END 2021-07-06 10:26 | disposition home or self-care (01) ==
LOC: ANHBWCLAB 10:27
PROVIDERS: PCP Nurse Practitioner Family; Visit Provider Student in an Organized Health Care Education/Training Program
DX: Z34.81 Encounter for supervision of other normal pregnancy, first trimester (principal)
CPT/HCPCS: 36415; 81220; 81243; 82306; 83021; 84443; 86592; 86703; 86762; 86787; 86803; 87077; 87086; 87088; 87340; G0432

== ENCOUNTER 2021-09-13 09:50 | Outpatient (CLI) | payer OTHER, SELFPAY ==
[2021-09-13 11:33] LABS: Basophils Percent Auto 0.4 % (0.2-1.2); Eosinophils Absolute Auto 0.1 K/mm3 (0-0.3); Eosinophils Percent Auto 1.3 % (0-4.4); Hematocrit 39.3 % (37.0-47.0); Hemoglobin 12.8 g/dL (12.0-15.0); Immature Granulocyte Absolute 0.07 K/mm3 (0.00-0.031); Immature Granulocyte Percent A 0.7 % (0-0.5); Lymphocytes Absolute Auto 1.72 K/mm3 (0.9-3.2); Lymphocytes Percent Auto 16.5 % (18.3-44.2); Mean Corpuscular HGB Conc 32.6 g/dl (32-36); Mean Corpuscular Hemoglobin 30.3 pg (26-34); Mean Corpuscular Volume 92.9 fl (80-100); Mean Platelet Volume 10.3 fl (7.4-10.4); Monocytes Absolute Auto 0.6 K/mm3 (0.1-0.6); Monocytes Percent Auto 6.1 % (2.6-8.5); Neutrophils Absolute Auto 7.8 K/mm3 (1.3-6.7); Platelet Count Result 273 k/mm3 (150-375); Red Blood Count 4.23 M/mm3 (4.2-5.4); Red Cell Distribution Width 14.6 % (11.5-14.5); White Blood Count 10.4 K/mm3 (4.5-10.0)
[2021-09-13 11:54] LABS: Glucose 1 Hour PP 50gm Dose 144 mg/dL
== END 2021-09-13 09:51 | disposition home or self-care (01) ==
LOC: ANHLAB 09:51
PROVIDERS: PCP Nurse Practitioner Family; Visit Provider Student in an Organized Health Care Education/Training Program
DX: Z34.82 Encounter for supervision of other normal pregnancy, second trimester (principal)
CPT/HCPCS: 36415; 82947; 85025

== ENCOUNTER 2021-09-26 07:59 | Outpatient (CLI) | payer OTHER, SELFPAY ==
[2021-09-26 08:41] LABS: Glucose Fasting Gestational 96 mg/dL (>/=95)
[2021-09-26 10:17] LABS: Glucose 1 Hour Gest 156 mg/dL (>/=180)
[2021-09-26 11:17] LABS: Glucose 2 Hour Gest 129 mg/dL (>/= 155)
[2021-09-26 12:35] LABS: Glucose 3 Hour Gest 110 mg/dL (>/=140)
== END 2021-09-26 08:00 | disposition home or self-care (01) ==
LOC: ANHLAB 08:01
PROVIDERS: PCP Nurse Practitioner Family; Visit Provider Student in an Organized Health Care Education/Training Program
DX: R73.09 Other abnormal glucose (principal)
CPT/HCPCS: 36415; 82951; 82952

== ENCOUNTER 2021-10-24 10:40 | Outpatient (CLI) | payer OTHER, SELFPAY ==
[2021-10-24 10:54] LABS: Basophils Absolute Auto 0.1 K/mm3 (0.0-0.1); Basophils Percent Auto 0.4 % (0.2-1.2); Eosinophils Absolute Auto 0.1 K/mm3 (0-0.3); Eosinophils Percent Auto 1.1 % (0-4.4); Hematocrit 40.1 % (37.0-47.0); Hemoglobin 13.6 g/dL (12.0-15.0); Immature Granulocyte Absolute 0.07 K/mm3 (0.00-0.031); Immature Granulocyte Percent A 0.6 % (0-0.5); Lymphocytes Absolute Auto 2.19 K/mm3 (0.9-3.2); Lymphocytes Percent Auto 18.9 % (18.3-44.2); Mean Corpuscular HGB Conc 33.9 g/dl (32-36); Mean Corpuscular Hemoglobin 30.8 pg (26-34); Mean Corpuscular Volume 90.9 fl (80-100); Mean Platelet Volume 10.5 fl (7.4-10.4); Neutrophils Absolute Auto 8.1 K/mm3 (1.3-6.7); Platelet Count Result 229 k/mm3 (150-375); Red Blood Count 4.41 M/mm3 (4.2-5.4); Red Cell Distribution Width 13.9 % (11.5-14.5); White Blood Count 11.6 K/mm3 (4.5-10.0)
[2021-10-24 11:46] LABS: HIV 1/2 Ab P24 Ag Result Negative (Negative)
[2021-10-26 07:04] LABS: Rapid Plasma Reagin Non-Reactive (NonReactive)
== END 2021-10-24 10:41 | disposition home or self-care (01) ==
LOC: ANHLAB 10:42
PROVIDERS: PCP Nurse Practitioner Family; Visit Provider Student in an Organized Health Care Education/Training Program
DX: Z34.83 Encounter for supervision of other normal pregnancy, third trimester (principal)
CPT/HCPCS: 36415; 85025; 86592; 86703; G0432

== ENCOUNTER 2021-11-24 04:43 | Inpatient (IN) | payer OTHER, SELFPAY ==
[2021-11-24] VITALS (76 sets, daily range): BP systolic 103–149; BP diastolic 50–106; PULSE 69–167; RESP 18; TEMP 36.2–36.9; O2SAT 85–99; BMI 46.2
--- OUTSIDE RECORDS SUMMARY | 2021-11-24 04:47 | XMS_ITS ---
:1985 Author Care Team Providers Name Role Phone Michelle Ball Primary Care Provider Unavailable Allergies Code Code System Name Reaction Severity Status Onset [id number] RxNorm Latex Rash Mild Active ? Medications Name Status Start Date Stop Date ? ? albuterol sulfate (2.5 mg/3ml) 0.083% nebu Active ? Not available albuterol sulfate 2.5 mg/3 mL (0.083 %) solution for Active ? Not available nebulization amoxicillin 875 mg tablet Active ? Not av ailable azithromycin 250 mg tablet Active ? Not a vailable TAKE 2 TABLETS BY MOUTH ON DAY 1 AND TH EN TAKE 1 TABLET BY MOUTH ONCE A DAY ON DAY 2 THROUGH DAY 5 benzonatate 200 mg capsule Completed ? 08/02 budesonide 0.5 mg/2 mL suspension for nebulization Active ? Not available clindamycin HCl 300 mg capsule Active ? N ot available clobetasol 0.05 % topical ointment Completed ? 02/17/2016 Contrave 8 mg-90 mg tablet,extended release Active ? Not available Take 2 tablets twice a day by oral route for 30 days. cyclobenzaprine 10 mg tablet Completed ? cyclobenzaprine 5 mg tablet Active ? Not available doxycycline hyclate 100 mg capsule Active ? Not available TAKE 1 CAPSULE BY MOUTH TWICE DAILY FOR 7 DAYS fexofenadine 180 mg tablet Active ? Not a vailable Take 1 tablet every day by oral route for 90 days. Fluvirin (PF) 45 mcg (15 mcg x 3)/0.5 mL Active ? Not available intramuscular syringe hydrocodone 5 mg-acetaminophen 325 mg tablet Active ? Not available hydrocodone 7.5 mg-acetaminophen 300 mg tablet Completed ? 05/04/2016 ibuprofen 600 mg tablet Completed ? 08/02/19 16 ipratropium 0.5 mg-albuterol 3 mg (2.5 mg base)/3 mL Com
--- NOTE | 2021-11-24 05:06 | LDADM ---
This patient, Abena Chandra, was admitted to Labor/Delivery/Recovery 104 on 11/24/21 at 04:43. Plans for labor, pain management and were discussed with patient. Patient/family oriented to hospital policies and general routines including ID bracelet, bed and alarms, visiting hours, pain management, procedures, bathroom and other care routines, personal items, smoking policy, room service/diet and guest tray routines, security routines, and visiting hours. Patient/Family are encouraged to report perceived risks to care and to ask questions if they do not understand what they are told or what they should do. See OBIX for further documentation.
[2021-11-24] MEDS: AMPICILLIN 2 GM/NS 100 ML 2 GM/100 ML BAG IVPB (05:13)
[2021-11-24] MEDS: LACTATED RINGERS 1,000 ML 125 ML IV CONT ×2 (05:13→12:58)
[2021-11-24 05:18] LABS: Basophils Percent Auto 0.3 % (0.2-1.2); Eosinophils Absolute Auto 0.2 K/mm3 (0-0.3); Eosinophils Percent Auto 1.9 % (0-4.4); Hemoglobin 13.7 g/dL (12.0-15.0); Immature Granulocyte Absolute 0.06 K/mm3 (0.00-0.031); Immature Granulocyte Percent A 0.5 % (0-0.5); Lymphocytes Absolute Auto 2.51 K/mm3 (0.9-3.2); Lymphocytes Percent Auto 21.6 % (18.3-44.2); Mean Corpuscular HGB Conc 33.4 g/dl (32-36); Mean Corpuscular Hemoglobin 30.6 pg (26-34); Mean Corpuscular Volume 91.5 fl (80-100); Mean Platelet Volume 11.3 fl (7.4-10.4); Monocytes Absolute Auto 0.6 K/mm3 (0.1-0.6); Neutrophils Absolute Auto 8.2 K/mm3 (1.3-6.7); Neutrophils Percent Auto 70.7 % (45.5-73.1); Platelet Count Result 200 k/mm3 (150-375); Red Blood Count 4.48 M/mm3 (4.2-5.4); Red Cell Distribution Width 13.5 % (11.5-14.5); White Blood Count 11.6 K/mm3 (4.5-10.0)
--- NOTE | 2021-11-24 06:20 | WPDANESEPP ---
Anes - Eval Pre Procedure Procedure: labor epidural Date/Time: 11/24/21 06:20 Surgeon: avery Preop Diagnosis: pain during labor Pre Op Diagnosis: IOL Patient Data Age: 36 Gender: F Height: 1.75 m Weight: 142 kg Last Vital Signs Pulse 81 11/24/21 06:00 BP 124/78 11/24/21 06:00 O2 Del Method Room Air 11/24/21 05:05 Allergies Allergy/AdvReac Type Severity Reaction Status Date / Time latex Allergy Unknown Unknown Verified 11/22/21 13:51 Home Medications Medication Instructions Recorded Confirmed Type albuterol sulfate 2.5 mg/3 mL 2.5 mg continuous nebulization QID 08/08/20 11/24/21 History (0.083 %) solution for nebulization PRN Shortness Of Breath albuterol sulfate 90 mcg/actuation 2 puff inhalation DAILY PRN 08/08/20 11/24/21 History aerosol inhaler (Ventolin HFA) Shortness Of Breath Or Wheezing budesonide-formoterol HFA 160 2 puff inhalation BID 08/08/20 11/24/21 History mcg-4.5 mcg/actuation aerosol inhaler (Symbicort) cetirizine 10 mg tablet (Zyrtec) 10 mg PO DAILY 08/08/20 11/24/21 History diphenhydramine HCl 25 mg tablet 25 mg PO HS 08/08/20 11/24/21 History (Benadryl Allergy) vitamin no.07-oudx-[id number]-dha 1 cap PO DAILY #90 caps 05/03/21 11/24/21 Rx 28 mg iron-1 mg-200 mg capsule (LEADERSHIP COACH-PNV-DHA) Laboratory Tests 11/24/21 11/24/21 05:12 05:12 WBC 11.6 K/mm3 H K/mm3 (4.5-10.0) RBC 4.48 M/mm3 M/mm3 (4.2-5.4) Hgb 13.7 g/dL g/dL (12.0-15.0) Hct 41.0 % % (37.0-47.0) MCV 91.5 fl fl (80-100) MCH 30.6 pg pg (26-34) MCHC 33.4 g/dl g/dl (32-36) RDW 13.5 % % (11.5-14.5) Plt Count 200 k/mm3 k/mm3 (150-375) MPV 11.3 fl H fl (7.4-10.4) Immature Gran % (Auto) 0.5 % % (0-0.5) Neut % (Auto) 70.7 % % (45.5-73.1) Lymph % (Auto) 21.6 % % (18.3-44.2) [place] % (Auto) 5.0 % % (2.6-8.5) Eos % (Auto) 1.9 % % (0-4.4) Baso % (Auto) 0.3 % % (0.2-1.2) Lymph # (Auto) 2.51 K/mm3 K/mm3 (0.9-3.2) [place] # (Auto) 0.6 K/mm3 K/mm3 (0.1-0.6) Eos # (Auto) 0.2 K/mm3 K/mm3 (0-0.3) Baso # (Auto) 0.0 K/mm3 K/mm3 (0.0-0.1) Abs Immat Gran (auto) 0.06 K/mm3 H K/mm3 (0.00-0.031) Absolute Neuts (auto) 8.2 K/mm3 H K/mm3 (1.3-6.7) Absolute Nucleated RBC 0.0 K/mm3 K/mm3 (0.0-0.012) Nucleated RBC % 0.0 % % (0.0-0.2) RPR Pending Patient hx anesthesia problems: none Family hx anesthesia problems: none Results Review: All pre-operative results and documents have been reviewed as part of the pre-operative evaluation. [facility] Past Medical History Medical History (Updated 11/24/21 @ 06:20 by Sravani Hernández CRNA) Asthma History of vaginal delivery x1 IUP (intrauterine ), incidental Migraines Morbid obesity with BMI of 45.0-49.9, adult Surgical History Surgical History History of incision and drainage Flank abscess. Family History Family History Mother Graves disease Family history of skin conditions Hypertension Sibling Patient's brother is in good health Father Hypertension Son Asthma Daughter Eczema Grandparent Non-Hodgkin lymphoma Social History Social History Social History: Surrogate decision maker: Yuniel Chandra, . Code status: Full code. Smoking status: Never smoker Alcohol intake: never Substance use: never Additional living arrangements comments: The patient lives in [place] with her , 2 children (3 and 7), and her mother. Additional occupation/education comments: [id number] mother. Gender identity (if verbalized by the patient): Female Spiritual care concerns: No Exam Day of Procedure 11/24/21 06:20
[2021-11-24 07:29] LABS: Rapid Plasma Reagin Non-Reactive (NonReactive)
--- NOTE | 2021-11-24 09:21 | PM.IMHP ---
H&P: HPI History of Present Illness Date/Time: 11/24/21 09:21 Chief Complaint: Elective induction of labor Narrative: Patient is a 36-year-old LMP early January 2021 who presented to labor and delivery for scheduled elective induction of labor. Patient is dated by an ultrasound on 05/09/2021 at 10 weeks gestation. Patient is currently 39 weeks gestation with DILIP 12/01/2021. In general, patient reports feeling well. Denies any vaginal bleeding, leakage of fluid, or contractions. Reports good movement. Review of Systems Review of Systems: All systems reviewed & are unremarkable except as noted in HPI and below Constitutional: Constitutional: Reports as per HPI and Reports no additional constitutional complaints Eyes: Eyes: Reports as per HPI and Reports no additional eye complaints ENT: Reports system reviewed and no additional complaints, except as documented and Reports as per HPI Cardiovascular: Cardiovascular: Reports as per HPI and Reports no additional cardiovascular complaints Respiratory: Respiratory: Reports as per HPI and Reports no additional respiratory complaints Gastrointestinal: Gastrointestinal: Reports as per HPI and Reports no additional gastrointestinal complaints Genitourinary: Genitourinary: Reports no additional female genitourinary complaints and Reports as per HPI Musculoskeletal: Musculoskeletal: Reports no additional musculoskeletal complaints and Reports as per HPI Integumentary/Breasts: Skin/Breast: Reports system reviewed and no additional complaints, except as docu and Reports as per HPI Neurologic: Reports system reviewed and no additional complaints, except as documented and Reports as per HPI Psychiatric: Psychiatric: Reports no additional psychiatric complaints and Reports as per HPI Endocrine: Endocrine: Reports no additional endocrine complaints and Reports as per HPI Hematologic/Lymphatic: Hematologic/Lymphatic: Reports no additional hematologic/lymphatic complaints and Reports as per HPI Allergic/Immunologic: Allergic/Immunologic: Reports no additional allergic/immunologic complaints and Reports as per HPI PMFSH Past Medical History Medical History Asthma History of vaginal delivery x1 IUP (intrauterine ), incidental Migraines Morbid obesity with BMI of 45.0-49.9, adult Surgical History Surgical History History of incision and drainage Flank abscess. Family History Family History Mother Graves disease Family history of skin conditions Hypertension Sibling Patient's brother is in good health Father Hypertension Son Asthma Daughter Eczema Grandparent Non-Hodgkin lymphoma Social History Social History Social History: Surrogate decision maker: Yuniel Chandra, . Code status: Full code. Smoking status: Never smoker Alcohol intake: never Substance use: never Additional living arrangements comments: The patient lives in [place] with her , 2 children (3 and 7), and her mother. 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 Gender identity (if verbalized by the patient): Female Spiritual care concerns: No Meds Home Medications and Allergies Home Medications Medication Instructions Recorded Confirmed Type albuterol sulfate 2.5 mg/3 mL 2.5 mg continuous nebulization QID 08/08/20 11/24/21 History (0.083 %) solution for nebulization PRN Shortness Of Breath albuterol sulfate 90 mcg/actuation 2 puff inhalation DAILY PRN 08/08/20 11/24/21 History aerosol inhaler (Ventolin HFA) Shortness Of Breath Or Wheezing budesonide-formoterol HFA 160 2 puff inhalation BID 08/08/20 11/24/21 History mcg-4.5 mcg/actuation aerosol inhaler (Symbicort) cetirizine 10 mg tablet (Zyrtec)
[2021-11-24] MEDS: AMPICILLIN 1 GM/NS 50 ML 1 GM/50 ML BAG IVPB ×2 (11:53→15:56)
[2021-11-24] MEDS: ONDANSETRON INJ 4 MG/2 ML VIAL IV PUSH (14:30)
--- NOTE | 2021-11-24 16:57 | PM.OBPRVD ---
OB - Delivery Note Procedure Delivery date: 11/24/21 Procedure: The patient is a 36-year-old now who presented to labor and delivery on the morning of 11/24/2021 at 39 weeks gestation for scheduled elective induction of labor. Patient was admitted to labor and delivery. Antibiotics were started for GBS prophylaxis. Initial cervical exam was 5 cm dilated. Induction of labor was begun with Pitocin. Pitocin was slowly titrated throughout the morning and afternoon. Patient became increasingly uncomfortable and requested an epidural for pain management. Patient had inadequate pain relief with first epidural. This one was removed and a second epidural was placed after which patient became significantly more comfortable. Pitocin was continued and patient progressed to fully dilated at 3:34 p.m. Patient was prepped and draped for delivery. Artificial rupture membranes was performed at 4:12 p.m. Clear amniotic fluid was noted. Patient was encouraged to push and found to be pushing well. At 4:24 p.m., patient delivered infant head atraumatically in MARIO presentation. Occiput restituted to maternal left side. A nuchal cord x1 was noted, however, infant's neck, shoulders, and rest of body delivered quickly and without difficulty. Nuchal cord was reduced immediately after delivery of rest of body. Infant was crying spontaneously. Nose and mouth were suctioned with bulb suction. Infant was placed on maternal abdomen where care was assumed by awaiting nursing staff. Delayed cord clamping was performed for approximately 60 seconds. Cord was clamped and cut. A segment of cord was collected for cord gases. Cord blood was collected. The placenta was delivered spontaneous and intact. Uterine fundus was noted to be firm with massage. On inspection, a superficial first-degree perineal laceration was noted. This laceration was repaired with 3-0 Vicryl in the usual fashion. Excellent hemostasis was noted. Estimated blood loss for entire delivery was 195 cc. The infant was a live-born male , Apgars 8 and 9, weighing 9 lbs. 1 oz. Both mother and baby doing well at and delivery. Events: Positive Group B Strep (GBS) Induction method: Per Pitocin Protocol Delivery monitor: External FHT and External Uterine Route of delivery: Laceration Description: Perineal - 1st Degree Delivery repair: vicryl (3-0 vicryl) Specimen: Yes (cord blood and cord gases) Quantitative Blood Loss (ml): 195 Anesthesia type: Epidural Disposition: Floor Complications: No immediate complications Baby Date of : 11/24/21 Time of : 16:24 Weeks of gestation at delivery: 39 gender: Male Weight (pounds): 9 Weight (ounces): 1 presentation: vertex position: Left Occiput Anterior Placenta delivery description: Spontaneous Cord Vessel Description: 3 Vessels, Nuchal Cord (x1) and Delayed Cord Clamping score one minute: 8 score five minutes: 9 AMG Delivery Billing Delivery Delivery: Delivery Charge
[2021-11-24] MEDS: OXYTOCIN 30 UNITS/NS 500 ML 30 UNITS/500 ML BAG 125 UNITS IV CONT (17:02)
[2021-11-25 05:00] VITALS: BP 135/81; PULSE 80; RESP 18; TEMP 35.7; O2SAT 99
[2021-11-25 05:18] LABS: Hematocrit 35.7 % (37.0-47.0); Hemoglobin 12.5 g/dL (12.0-15.0)
[2021-11-25 08:46] VITALS: BP 127/84; PULSE 84; RESP 18; TEMP 36.7; O2SAT 99
--- NOTE | 2021-11-25 10:03 | PM.OBPNVD ---
OB - PN: Subj Subjective Date/time seen: 11/25/21 10:03 Patient doing well. Minimal pain controlled with medication. Minimal lochia. Voiding well. Ambulating without difficulty. OB - PN: Obj Data Labs CBC & Chem 7: 11/25/21 04:52 Labs: Laboratory Results - last 24 hr 11/25/21 04:52 Hgb 12.5 Hct 35.7 L OB - PN A/P Assessment and Plan (1) Normal spontaneous vaginal delivery: Code(s): O80 - Encounter for full-term uncomplicated delivery Status: Acute Assessment and Plan: PPD#1 doing well continue routine care anticipate dc home tomorrow Time Spent With Patient Time: Total time spent is greater than 50% in coordination of care (as documented) at patient's floor/unit and/or counseling patient: Exam Narrative: deferred, pt in restroom
--- NOTE | 2021-11-25 10:31 | WPDANLDPN2 ---
Anes-Prog Note L&D Date/Time: 11/25/21 10:31 Comfortable throughout: labor and delivery Neuraxial method: epidural Epidural/Spinal procedure site: tender (Site appears benign) Neuro status: Neuro function grossly intact. Cardiovascular status: normal Respiratory status: normal Airway patency: baseline Mental status: baseline Post-Op hydration status: normal Vital Signs: Last Vital Signs Temp 36.7 C 11/25/21 08:46 Pulse 84 11/25/21 08:46 Resp 18 11/25/21 08:46 BP 127/84 11/25/21 08:46 Pulse Ox 99 11/25/21 08:46 O2 Del Method Room Air 11/25/21 08:46 Pain score (VAS): 1 I/O: Intake & Output 11/24/21 11/25/21 11/25/21 23:59 07:59 15:59 Intake Total 1000 240 Balance 1000 240 Post-procedural complaints: none Patient feedback: Patient satisfied with anesthetic care.
[2021-11-25 12:45] VITALS: BP 123/78; PULSE 77; RESP 16; TEMP 36.2; O2SAT 99
--- NOTE | 2021-11-25 14:23 | PC.NURSE ---
Baby is downstairs in level 2 nursery and mother is asking for a breastpump. Took a pump in to the room, set it up and discussed and demonstrated how to use it and how often. Showed mother how to clean and store colostrum/milk, verbalized understanding.
[2021-11-25] MEDS: TETANUS,DIPHTHERIA,AC PERTUSSIS ADULT (0.5 ML) BOOSTRIX IM (17:00)
--- NOTE | 2021-12-26 11:20 | PM.OBDSVD ---
DS: Admitting Diagnosis Discharge Date 11/25/21 Admitting Diagnosis IUP at 39w gestation Induction of labor OB - DS: Summary OB Procedures : None OB Procedures Intrapartum: Spontaneous Vag Delivery and GBS prophylaxis OB Procedures: : None Time Spent with Patient Time attestation: Total time spent providing and/or coordinating discharge services: Discharge Plan Discharge Attending physician on discharge: Lyric Bates Consulting providers: Sravani Hernández ; Rhiannon Hughes Discharging Clinician: Mingo Kumar Patient Disposition: Home, Self-Care Activity: may shower Diet: regular Discharge Instructions: Education: Mom and Baby Guide Given to: Mother Follow-Up: Call your delivering provider's office for an appointment to be seen in: 6 Weeks Mom and baby should come to the [facility] for the follow-up appointment. Appointment Date/Time: November 28, 2021 at 10:00 am What to expect at your follow-up visit: Blood Pressure Check Physical Assessment Call [phone] if you are unable to keep your appointment time. BREAST CARE: * Wear a snug supportive bra. * For engorgement discomfort: Breast Feeding: * Apply warm moist washcloths * Express milk as needed to relieve engorgement * Wear loose clothing Bottle Feeding: * May apply ice packs * For sore nipples: * Identify correct latch-on * Apply warm moist washcloths before and after nursing * Air dry nipples after nursing * May apply Lansinoh cream to nipples EPISIOTOMY/PERINEAL CARE: * Until bleeding stops, use your marlys bottle after urinating * Change your pad frequently throughout the day * You may take sitz baths several times a day (fill your bathtub with warm water and soak for 20 minutes.) Do NOT bathe in the water * No tub baths until seen by your physician - You may shower ACTIVITY: * Rest as much as possible. * Do not exercise or lift anything heavier than your baby (such as laundry or other children.) * Avoid stairs or driving as much as possible. * Do not put anything into the vagina. No douching, tampons, or sexual activity until seen by physician. NOTIFY PHYSICIAN IF YOU HAVE ANY QUESTIONS OR IF ANY OF THE FOLLOWING SYMPTOMS OCCUR: * If your episiotomy or incision becomes red, swollen, or more painful than what you have experienced in the hospital. * If your vaginal bleeding becomes foul smelling. * If your vaginal bleeding becomes more heavy than a period or if your bleeding changes from pink to bright red. However, you may pass an occasional walnut-sized clot once or twice for the first week . * If you experience a sharp, shooting pain in you calves. * If you discover a hard, reddened area on your breast or if you experience flu-like symptoms. DIET: * Eat regular, well-balanced meals. * Drink plenty of fluids daily. If , drink to thirst. Stand Alone Forms: General Discharge Information Follow-up/Referrals: Lyric Bates MD [Physician] - Discharge Medications: Continued COURT RECORDER-PNV-DHA 28 mg iron- 1 mg-200 mg capsule 1 cap PO DAILY Qty: 90 0RF budesonide-formoterol [Symbicort] 160-4.5 mcg/actuation HFA aerosol inhaler 2 puff INHALATION BID Discontinued albuterol sulfate 2.5 mg /3 mL (0.083 %) solution for nebulization 2.5 mg continuous nebulization QID PRN (Reason: Shortness Of Breath) albuterol sulfate [Ventolin HFA] 90 mcg/actuation HFA aerosol inhaler 2 puff INHALATION DAILY PRN (Reason: Shortness Of Breath Or Wheezing) cetirizine [Zyrtec] 10 mg Tablet 10 mg PO DAILY diphenhydramine HCl [Benadryl Allergy] 25 mg Tablet 25 mg PO HS Date of admission: 11/24/21 04:43 Primary Care Provider: Ariel,Dinesh Admitting Provider: Lyric Bates Attending physician on admission: Mingo Kumar Condition: Stable
== END 2021-11-25 17:50 | disposition home or self-care (01) | DRG 807 ==
LOC: ANHLDR 04:49 → ANHOB2 11-25 17:15 → ANHLDR 11-28 09:50 → ANHOB2 11-28 09:50
PROVIDERS: Admitting Provider Student in an Organized Health Care Education/Training Program; PCP Nurse Practitioner Family; Visit Provider Obstetrics & Gynecology
DX: O99.824 Streptococcus B carrier state complicating childbirth (principal); Z37.0 Single live birth; O99.214 Obesity complicating childbirth; E66.01 Morbid (severe) obesity due to excess calories; O69.1XX0 Labor and delivery complicated by cord around neck, with compression, not applicable or unspecified; O70.0 First degree perineal laceration during delivery; O76 Abnormality in fetal heart rate and rhythm complicating labor and delivery; Z3A.39 39 weeks gestation of pregnancy
CPT/HCPCS: 36415; 85014; 85018; 85025; 86592; 86850; 86900; 86901; 90715; J0290; J2405; J2590; J2795; J7120

== ENCOUNTER 2022-07-12 14:14 | Emergency (ER) | payer OTHER, SELFPAY ==
[2022-07-12 14:18] VITALS: BP 152/89; PULSE 18; RESP 101; TEMP 36.6; O2SAT 97
--- NOTE | 2022-07-12 14:20 | ED.URI ---
HPI - URI/Sore Throat General Chief Complaint: Upper Respiratory Infection Stated Complaint: sob Time Seen by Provider: 07/12/22 14:20 Source: patient Mode of arrival: ambulatory Limitations: no limitations History of Present Illness HPI Narrative: Ms. Chandra is a 37-year-old female patient presenting to the clinic today with complaints of shortness of breath, nasal congestion, and cough x2 days. She reports known known fever, body aches, or chills. Denies any known exposure today will COVID, flu, or strep. Denies any chest pain. Rates her shortness of breath a 5/10 currently. Did do a hand-held neb treatment with albuterol approximately 1 hour prior to arrival and this helped with her shortness of breath. She does have a history of asthma. Uses Symbicort and albuterol for her asthma flares. MD elicited complaint: cough and other (Shortness of breath) Related Data Home Medications Medication Instructions Recorded Confirmed budesonide-formoterol HFA 160 2 puff inhalation BID 08/08/20 07/12/22 mcg-4.5 mcg/actuation aerosol inhaler (Symbicort) albuterol sulfate 2 puff inhalation DIRECTED 07/12/22 07/12/22 albuterol sulfate 2.5 mg/3 mL 2.5 mg inhalation DIRECTED 07/12/22 07/12/22 (0.083 %) solution for nebulization Allergies Allergy/AdvReac Type Severity Reaction Status Date / Time latex Allergy Unknown Unknown Verified 07/12/22 14:16 Review of Systems Review of Systems: Pertinent positives per HPI. Patient denies any fever, chills, rash, headache, visual changes, dizziness, chest pain, palpitations, nausea, vomiting, diarrhea, constipation, abdominal pain, or any urinary issues. [facility] Past Medical History Medical History Asthma History of vaginal delivery x3 IUP (intrauterine ), incidental Migraines Morbid obesity with BMI of 45.0-49.9, adult Surgical History Surgical History History of incision and drainage Flank abscess. Family History Family History Mother Graves disease Family history of skin conditions Hypertension Sibling Patient's brother is in good health Father Hypertension Son Asthma Daughter Eczema Grandparent Non-Hodgkin lymphoma Social History Social History Social History: Surrogate decision maker: Yuniel Chandra, . Code status: Full code. Smoking status: Never smoker Alcohol intake: never Substance use: never Additional living arrangements comments: The patient lives in [place] with her , 2 children (3 and 7), and her mother. Additional occupation/education comments: [id number] mother. Gender identity (if verbalized by the patient): Female Spiritual care concerns: No Comments At the time of my signature, I reviewed and agree with the nursing past medical, surgical, social, and family history. There is no relevant family history pertinent to the patient complaint. Exam Narrative: General: Well-developed, morbidly obese, in no apparent distress Head: Normocephalic, atraumatic Eyes: Pupils equally round and reactive to light bilaterally, EOM intact, sclera and conjunctive clear, no discharge, lids normal Ears: TMs intact and clear, ear canals clear, no drainage, grossly hearing normal. Nose: Nares patent, no discharge, no inflammation, no sinus tenderness. Mouth: Oral pharynx without lesions or masses, good dentition, MMM. Neck: Supple, trachea midline, no enlargement of anterior or posterior cervical nodes, no thyroid masses or goiter palpable. Cardio: Regular rate and rhythm, s1 and s2 normal, no murmur appreciated. Resp: Diminished lung sounds in the bases with faint wheezes in the upper and middle lobes, no rhonchi, rales, or rubs. Is able to speak in full sent
== END 2022-07-12 14:35 | disposition home or self-care (01) ==
PROVIDERS: Emergency Provider Nurse Practitioner Family; PCP Nurse Practitioner Family
DX: J45.901 Unspecified asthma with (acute) exacerbation (principal); J45.909 Unspecified asthma, uncomplicated; E66.01 Morbid (severe) obesity due to excess calories; Z68.41 Body mass index [BMI] 40.0-44.9, adult
CPT/HCPCS: 99213; G0463

== ENCOUNTER 2022-08-19 22:32 | Inpatient (IN) | payer OTHER, SELFPAY ==
--- NOTE | ~2022-08-19 | XR_ITS ---
EXAMINATION: XR chest 2V DATE: 08/19/2022 23:34 INDICATION: Asthma exacerbation. TECHNIQUE: Frontal and lateral views of the chest were obtained. COMPARISON: Chest 2 views 08/09/2020, chest CT 08/10/2020 FINDINGS: There is mild atelectasis in right mid and lower lung zones and left lower lung zone. No pl eural effusion or pneumothorax. The heart size is normal. There is mild chronic anterior wedging of m ultiple thoracic vertebral bodies. IMPRESSION: 1. Mild atelectasis in right mid and lower lung zones and left lower lung zone. Reviewed, dictated and finalized at location A. 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
[2022-08-19 22:40] VITALS: BP 104/67; PULSE 140; RESP 16; TEMP 37.3; O2SAT 93
[2022-08-19 23:04] VITALS: O2SAT 91
[2022-08-19 23:10] VITALS: BP 104/73; PULSE 132; RESP 20
[2022-08-19 23:11] VITALS: O2SAT 93
[2022-08-19 23:59] VITALS: PULSE 125; RESP 26; O2SAT 96
[2022-08-20] VITALS (21 sets, daily range): BP systolic 114–139; BP diastolic 62–99; PULSE 94–132; RESP 16–30; TEMP 36.3–36.5; O2SAT 93–100; BMI 43.2
--- NOTE | 2022-08-20 00:09 | ECG_ITS ---
Measurements Intervals Vanduser Rate: 122 P: 62 NE: 149 QRS: 50 QRSD: 88 T: 48 QT: 293 QTc: 418 Interpretive Statements SINUS TACHYCARDIA BASELINE WANDER- II, III, V2-V6 ABNORMAL ECG COMPARED TO ECG 08/09/2020 11:15:04 NO SIGNIFICANT CHANGES Electronically Signed On 08-20-2022 6:38:53 EXTRUSION PRESS OPERATOR by Benji Pal D.O.
--- NOTE | 2022-08-20 00:20 | ED.ASTHMA ---
HPI - Asthma General Chief Complaint: Asthma Stated Complaint: asthma Time Seen by Provider: 08/19/22 23:08 Source: patient Mode of arrival: ambulatory Limitations: no limitations History of Present Illness HPI Narrative: Patient is a 37-year-old female who presents to the ED with report of shortness of breath and wheezing. Patient has a history of asthma and uses nebulizers, albuterol at home. She states she typically experiences exacerbations with weather changes and began feeling very short of breath and tight this morning. Her current symptoms feel typical of her usual exacerbations. She tried using her home treatments without relief. She also complains of chest pain and tightness and a cough today. Denies sick contacts but states she has 3 kids. Denies any fevers, nausea, vomiting. Related Data Home Medications Medication Instructions Recorded Confirmed budesonide-formoterol HFA 160 2 puff inhalation BID 08/08/20 07/12/22 mcg-4.5 mcg/actuation aerosol inhaler (Symbicort) albuterol sulfate 2 puff inhalation DIRECTED 07/12/22 07/12/22 albuterol sulfate 2.5 mg/3 mL 2.5 mg inhalation DIRECTED 07/12/22 07/12/22 (0.083 %) solution for nebulization Allergies Allergy/AdvReac Type Severity Reaction Status Date / Time latex Allergy Unknown Unknown Verified 08/19/22 22:32 Review of Systems Review of Systems: CONSTITUTIONAL: Denies fever, chills, or sweats. ENT: See HPI. CARDIOVASCULAR: See HPI. RESPIRATORY: See HPI. GASTROINTESTINAL: Denies abdominal pain, nausea, vomiting. All systems reviewed & are unremarkable except as noted in HPI and below PMFSH Past Medical History Medical History Asthma History of vaginal delivery x3 IUP (intrauterine ), incidental Migraines Morbid obesity with BMI of 45.0-49.9, adult Surgical History Surgical History History of incision and drainage Flank abscess. Family History Family History Mother Graves disease Family history of skin conditions Hypertension Sibling Patient's brother is in good health Father Hypertension Son Asthma Daughter Eczema Grandparent Non-Hodgkin lymphoma Social History Social History Social History: Surrogate decision maker: Yuniel Chandra, . Code status: Full code. Smoking status: Never smoker Alcohol intake: never Substance use: never Additional living arrangements comments: The patient lives in [place] with her , 2 children (3 and 7), and her mother. Additional occupation/education comments: [id number] mother. Gender identity (if verbalized by the patient): Female Spiritual care concerns: No Exam Narrative: GENERAL: Mildly ill-appearing, morbidly obese, non-toxic, in mild acute respiratory distress. HEAD: Normocephalic, atraumatic. NECK: Supple. No adenopathy, no masses. RESPIRATORY: Airway patent. Diffuse inspiratory and expiratory wheezing, very tight lung sounds, tachypneic. Poor air movement. Tripoding. CARDIOVASCULAR: Tachycardic with regular rhythm without murmurs, rubs, or gallops. Peripheral pulses 2+ and equal bilaterally. ABDOMINAL: Soft, nontender, nondistended, no hepatosplenomegaly. Normoactive BS. MUSCULOSKELETAL: Moves all extremities. Strength/ROM intact without gross deformities. SKIN: Warm, dry, normal color. No rashes. NEURO: A&O X3. Speech clear. Cranial nerves II-XII grossly intact. Steady gait. No ataxic movements. PSYCHIATRIC: Anxious, tearful. Normal interaction. Course Vital Signs Vital signs: Vital Signs Temperature 99.2 F 08/19/22 22:40 Pulse Rate 140 H 08/19/22 22:40 Respiratory Rate 16 08/19/22 22:40 Blood Pressure 104/67 08/19/22 22:40 Pulse Oximetry 93 08/19/22 22:40 Oxygen Del
[2022-08-20] MEDS: IPRATROPIUM BR 0.02% INH SOLN 0.5 MG/2.5 ML VIAL 1.5 MG INHALATION ×2 (00:33→01:39)
[2022-08-20] MEDS: SODIUM CHLORIDE 0.9% IV 1,000 ML 999 ML IV CONT (00:42)
[2022-08-20] MEDS: methylPREDNISolone SOD SUCC 125 MG VIAL IV PUSH (00:42)
[2022-08-20 00:44] LABS: Basophils Absolute Auto 0.1 K/mm3 (0.0-0.1); Basophils Percent Auto 0.7 % (0.2-1.2); Eosinophils Absolute Auto 0.5 K/mm3 (0-0.3); Eosinophils Percent Auto 4.7 % (0-4.4); Hemoglobin 16.7 g/dL (12.0-15.0); Immature Granulocyte Absolute 0.02 K/mm3 (0.00-0.031); Immature Granulocyte Percent A 0.2 % (0-0.5); Lymphocytes Absolute Auto 1.52 K/mm3 (0.9-3.2); Lymphocytes Percent Auto 15.7 % (18.3-44.2); Mean Corpuscular HGB Conc 34.1 g/dl (32-36); Mean Corpuscular Hemoglobin 31.4 pg (26-34); Mean Corpuscular Volume 92.1 fl (80-100); Monocytes Absolute Auto 0.9 K/mm3 (0.1-0.6); Monocytes Percent Auto 9.5 % (2.6-8.5); Neutrophils Absolute Auto 6.7 K/mm3 (1.3-6.7); Neutrophils Percent Auto 69.2 % (45.5-73.1); Platelet Count Result 315 k/mm3 (150-375); Red Blood Count 5.32 M/mm3 (4.2-5.4); White Blood Count 9.7 K/mm3 (4.5-10.0)
[2022-08-20 00:56] LABS: Alanine Aminotransferase 21 U/L (6-35); Albumin Level 4.5 g/dL (3.5-5.1); Alkaline Phosphatase 81 U/L (38-126); Anion Gap 8 mmol/L (8-16); Aspartate Amino Transferase 19 U/L (14-36); Bilirubin,Total 0.9 mg/dL (0.2-1.3); Blood Urea Nitrogen 6 mg/dL (7-17); Calcium 8.9 mg/dL (8.4-10.2); Carbon Dioxide 20 mmol/L (22-30); Chloride 109 mmol/L (98-107); Estimated CRCL calculation 102 ml/min; Estimated Glomerular Filt Rate > 60; Glucose 101 mg/dL (65-110); Potassium 3.8 mmol/L (3.4-5.0); Sodium 137 mmol/L (137-145)
[2022-08-20 01:08] LABS: Troponin I < 0.012 ng/mL (0.000-0.034)
[2022-08-20 01:54] LABS: Influenza A QL RT-PCR Negative (Negative); Influenza B QL RT-PCR Negative (Negative); SARS-CoV-2 RNA PCR Negative
[2022-08-20] MEDS: MAGNESIUM SULF 2 GM/WATER 50ML 2 GM/50 ML BAG IVPB (03:56)
--- NOTE | 2022-08-20 04:32 | PC.NURSE ---
This patient, Abena Chandra, was admitted to [facility] Surg Room 309-01. Patient/family oriented to hospital policies and general routines including ID bracelet, bed and alarms, visiting hours, pain management, procedures, bathroom and other care routines, personal items, smoking policy, room service/diet, and visiting hours. Information on how to activate the Rapid Response Team has been discussed. Patient/Family are encouraged to report perceived risks to care and to ask questions if they do not understand what they are told or what they should do.
[2022-08-20] MEDS: methylPREDNISolone SOD SUCC 125 MG VIAL 60 MG IV PUSH ×3 (06:09→21:27)
[2022-08-20] MEDS: IPRATROPIUM BR 0.02% INH SOLN 0.5 MG/2.5 ML VIAL INHALATION ×3 (08:27→22:10)
[2022-08-20] MEDS: LEVALBUTEROL NEB 1.25 MG/3 ML 0.63 MG INHALATION ×2 (08:28→14:01)
[2022-08-20] MEDS: SODIUM CHLORIDE 0.9% IV 1,000 ML 100 ML IV CONT (09:25)
[2022-08-20] MEDS: AZITHROMYCIN 250 MG TABLET 500 MG PO (09:25)
[2022-08-20] MEDS: ALBUTEROL SULFATE NEB 2.5 MG/3 ML INH INHALATION ×2 (14:01→22:09)
--- NOTE | 2022-08-20 14:03 | PM.IMHP ---
H&P: HPI History of Present Illness Date/Time: 08/20/22 14:03 Chief Complaint: shortness of breath Narrative: This is a 37-year-old female with a past medical history significant for asthma presented to the ED on 08/19/2022 with chief complaint of shortness of breath. Patient stated that her shortness of breath started in the afternoon and she had been attempting to use her nebulizers and increased up the role use without relief. Patient had developed a cough 2 days ago although it is nonproductive. Patient has 3 kids at home and states that they of been having cold on and off over the past couple months. Labs Significant for elevated hemoglobin hematocrit at 16.7/49 otherwise unremarkable. COVID and flu negative. Chest x-ray revealed mild atelectasis in the right mid and lower lung zones and left lower lung zone. patient requiring supplemental oxygen due to saturations dropping into the upper 80s and low 90s. When seeing the patient she was requiring 4 L of oxygen. DuoNebs ordered and patient started on IV Solu-Medrol 60 mg q.8 hours. Z-Jose ordered. Patient denies chest pain, dizziness, headache, abdominal pain, nausea, vomiting, diarrhea, hence patient, body aches, chills and dysuria. Review of Systems Review of Systems: All systems reviewed & are unremarkable except as noted in HPI and below PMFSH Past Medical History Medical History Asthma History of vaginal delivery x3 IUP (intrauterine ), incidental Migraines Morbid obesity with BMI of 45.0-49.9, adult Surgical History Surgical History History of incision and drainage Flank abscess. Family History Family History Mother Graves disease Family history of skin conditions Hypertension Sibling Patient's brother is in good health Father Hypertension Son Asthma Daughter Eczema Grandparent Non-Hodgkin lymphoma Social History Social History (Updated 08/20/22 @ 14:21 by Jessica Smith PA-C) Social History: Patient lives with 3 kids and her and no pets. Surrogate decision maker: Yuniel Chandra, . Code status: Full code. Smoking status: Never smoker Alcohol intake: never Substance use: never Substance use type: does not use Lack of Transportation: No Lack of Food: Never True Current Housing: I Have Housing Concerned About Future Housing: Decline to Answer Difficulty Paying Gas/Electric Bills: Decline to Answer Difficulty Paying for Meds: Decline to Answer Currently Unemployed: Decline to Answer Education: Decline to Answer Difficulty w/ Childcare or Family Care: Decline to Answer Additional living arrangements comments: The patient lives in [place] with her , 2 children (3 and 7), and her mother. Additional occupation/education comments: [id number] mother. Gender identity (if verbalized by the patient): Female Spiritual care concerns: No Meds Home Medications and Allergies Home Medications Medication Instructions Recorded Confirmed Type budesonide-formoterol HFA 160 2 puff inhalation BID 08/08/20 08/20/22 History mcg-4.5 mcg/actuation aerosol inhaler (Symbicort) albuterol sulfate 2.5 mg/3 mL 2.5 mg inhalation Q4-6H PRN 07/12/22 08/20/22 History (0.083 %) solution for nebulization Shortness Of Breath cetirizine 10 mg tablet (Zyrtec) 10 mg PO HS 08/20/22 08/20/22 History diphenhydramine HCl 25 mg capsule 25 mg PO HS PRN Insomnia 08/20/22 08/20/22 History (Benadryl) Allergies Allergy/AdvReac Type Severity Reaction Status Date / Time latex Allergy Unknown Unknown Verified 08/20/22 04:47 Vital Signs Vital Signs - 24 hr 08/19/22 22:40 08/19/22 23:04 08/19/22 23:10 Temperature 99.2 F Pulse Rate 140 H 132 H Respiratory Rate 16 20 Blood Pressure 104/67 104/73
[2022-08-20] MEDS: MONTELUKAST SODIUM 10 MG TABLET PO (21:27)
[2022-08-20] MEDS: guaiFENesin/DEXTROMETHORPHAN 10 ML UDC 5 ML PO (21:27)
[2022-08-21] VITALS (15 sets, daily range): BP systolic 110–125; BP diastolic 59–81; PULSE 71–104; RESP 14–20; TEMP 36.2–36.9; O2SAT 93–96
[2022-08-21] MEDS: ALBUTEROL SULFATE NEB 2.5 MG/3 ML INH INHALATION ×4 (02:38→19:44)
[2022-08-21] MEDS: IPRATROPIUM BR 0.02% INH SOLN 0.5 MG/2.5 ML VIAL INHALATION ×4 (02:38→19:44)
[2022-08-21] MEDS: methylPREDNISolone SOD SUCC 125 MG VIAL 60 MG IV PUSH ×2 (06:30→20:40)
[2022-08-21 07:18] LABS: Basophils Percent Auto 0.2 % (0.2-1.2); Hematocrit 45.7 % (37.0-47.0); Hemoglobin 15.3 g/dL (12.0-15.0); Immature Granulocyte Absolute 0.21 K/mm3 (0.00-0.031); Immature Granulocyte Percent A 1.1 % (0-0.5); Lymphocytes Absolute Auto 1.48 K/mm3 (0.9-3.2); Lymphocytes Percent Auto 7.5 % (18.3-44.2); Mean Corpuscular HGB Conc 33.5 g/dl (32-36); Mean Corpuscular Hemoglobin 31.1 pg (26-34); Mean Corpuscular Volume 92.9 fl (80-100); Mean Platelet Volume 10.4 fl (7.4-10.4); Monocytes Absolute Auto 0.6 K/mm3 (0.1-0.6); Monocytes Percent Auto 3.2 % (2.6-8.5); Neutrophils Absolute Auto 17.3 K/mm3 (1.3-6.7); Platelet Count Result 340 k/mm3 (150-375); Red Blood Count 4.92 M/mm3 (4.2-5.4); Red Cell Distribution Width 13.1 % (11.5-14.5); White Blood Count 19.6 K/mm3 (4.5-10.0)
[2022-08-21 07:33] LABS: Alanine Aminotransferase 18 U/L (6-35); Albumin Level 3.8 g/dL (3.5-5.1); Alkaline Phosphatase 65 U/L (38-126); Anion Gap 6 mmol/L (8-16); Aspartate Amino Transferase 18 U/L (14-36); Bilirubin,Total 0.4 mg/dL (0.2-1.3); Blood Urea Nitrogen 10 mg/dL (7-17); Calcium 8.6 mg/dL (8.4-10.2); Carbon Dioxide 18 mmol/L (22-30); Chloride 115 mmol/L (98-107); Estimated CRCL calculation 124 ml/min; Estimated Glomerular Filt Rate > 60; Glucose 126 mg/dL (65-110); Potassium 4.2 mmol/L (3.4-5.0); Sodium 139 mmol/L (137-145)
[2022-08-21] MEDS: guaiFENesin/DEXTROMETHORPHAN 10 ML UDC 5 ML PO (07:53)
[2022-08-21] MEDS: AZITHROMYCIN 250 MG TABLET PO (07:59)
[2022-08-21] MEDS: LEVALBUTEROL NEB 1.25 MG/3 ML 0.63 MG INHALATION (08:37)
--- NOTE | 2022-08-21 13:03 | PM.IMPN ---
Progress Note: A&P Assessment and Plan (1) Asthma exacerbation: Qualifiers: Asthma persistence: unspecified Asthma severity: unspecified severity Qualified Code(s): J45.901 - Unspecified asthma with (acute) exacerbation Code(s): J45.901 - Unspecified asthma with (acute) exacerbation Status: Acute Assessment and Plan: Patient presents to the ED with shortness of breath. Patient requiring supplemental oxygen. Chest x-ray with mild atelectasis in the right mid lower lung zones and left lower lung zone. No evidence of pneumonia. Patient requiring 4 L of supplemental oxygen. Patient on room air normally. Wean oxygen to maintain O2 saturation greater than 90. IV Solu-Medrol 60 mg Q 8 hours. Azithromycin 500 mg day 1 and 250 mg after that for 4 days. Singulair daily DuoNebs every 6 hours scheduled. 08/21/22 Patient is still wheezing quite a bit although she is feeling much better today. Will deescalate Solu-Medrol to every 12 hours and patient continues to feel well she can be discharged home on p.o. prednisone tomorrow Patient no longer requiring supplemental oxygen. Subjective Date/time seen: 08/21/22 13:03 Interval history: Patient sitting and lying in her room today she is to much better and states that her shortness of breath is improved. Patient is completely off oxygen. Although patient is to wheezing pretty diffusely her shortness breath has resolved. Patient's cough is still persistent but states that it is not bothering her much. Patient very adamant that she must be discharged due to not having maternal child nurse for her children. Review of Systems Review of Systems: All systems reviewed & are unremarkable except as noted in HPI and below Exam Narrative: GENERAL: Comfortable, no acute distress HENMT: moist mucous membranes EYES: EOM intact b/l NECK: no lymphadenopathy RESPIRATORY: diffuse wheezing. CARDIO: RRR GI: soft, nontender, bowel sounds present SKIN: no rashes EXTREMITIES: no edema, redness or tenderness Objective Data Vital Signs Vital Signs: Vital Signs - 24 hr 08/20/22 14:02 08/20/22 14:00 08/20/22 21:08 Temperature 97.3 F L 97.7 F Pulse Rate 94 106 H 115 H Respiratory Rate 22 H 16 20 Blood Pressure 130/71 139/74 Pulse Oximetry 97 94 Oxygen Delivery Oxygen Flow Rate 08/20/22 20:00 08/20/22 21:50 08/20/22 22:02 Temperature Pulse Rate 95 97 Respiratory Rate 20 20 Blood Pressure Pulse Oximetry 94 Oxygen Delivery Nasal Cannula Oxygen Flow Rate 1 08/20/22 22:20 08/21/22 02:39 08/21/22 02:50 Temperature Pulse Rate 102 H 104 H Respiratory Rate 20 20 Blood Pressure Pulse Oximetry 94 Oxygen Delivery Nasal Cannula Oxygen Flow Rate 1 08/21/22 03:00 08/21/22 05:20 08/21/22 08:38 Temperature 98.4 F Pulse Rate 78 76 Respiratory Rate 20 18 Blood Pressure 110/63 Pulse Oximetry 94 94 Oxygen Delivery Room Air Oxygen Flow Rate 08/21/22 08:41 08/21/22 08:52 08/21/22 08:00 Temperature Pulse Rate 76 89 Respiratory Rate 18 18 Blood Pressure Pulse Oximetry 94 93 Oxygen Delivery Room Air Room Air Oxygen Flow Rate Intake/Output Intake/Output: Intake & Output 08/18/22 08/19/22 08/20/22 08/21/22 23:59 23:59 23:59 23:59 Intake Total 2772 570 Balance 2772 570 Meds/Results Medications: Active Medications Generic Name Dose Route Start Last Admin Trade Name Freq PRN Reason Stop Dose Admin Albuterol 2.5 mg 08/20/22 14:00 08/21/22 08:37 Albuterol Sulfate Neb 2.5 Mg/3 Ml Inh INHALATION 2.5 mg Q6HRT MARCUS Administration Azithromycin 250 mg 08/21/22 09:00 08/21/22 07:59 Azithromycin 250 Mg Tablet PO 08/24/22 09:01 250 mg DAILY MARCUS Administration Guaifenesin/Dextromethorphan 5 ml 08/20/22 20:47 08/21/22 07:53 Guaifenesin/Dextromethorphan 10 Ml Udc PO 5 ml Q4H PRN Administration Cough Ipratropium [place] 0.5 mg 08/20/22 08
[2022-08-21] MEDS: MONTELUKAST SODIUM 10 MG TABLET PO (20:39)
[2022-08-22] MEDS: ALBUTEROL SULFATE NEB 2.5 MG/3 ML INH INHALATION ×2 (02:11→08:46)
[2022-08-22] MEDS: IPRATROPIUM BR 0.02% INH SOLN 0.5 MG/2.5 ML VIAL INHALATION ×2 (02:11→08:46)
[2022-08-22 02:14] VITALS: PULSE 68; RESP 16
[2022-08-22 02:26] VITALS: PULSE 70; RESP 16
[2022-08-22 05:54] VITALS: BP 121/70; PULSE 78; RESP 14; TEMP 36.1; O2SAT 94
[2022-08-22 06:10] LABS: Basophils Percent Auto 0.1 % (0.2-1.2); Hematocrit 44.9 % (37.0-47.0); Hemoglobin 14.9 g/dL (12.0-15.0); Immature Granulocyte Absolute 0.09 K/mm3 (0.00-0.031); Immature Granulocyte Percent A 0.6 % (0-0.5); Lymphocytes Absolute Auto 1.41 K/mm3 (0.9-3.2); Lymphocytes Percent Auto 9.9 % (18.3-44.2); Mean Corpuscular HGB Conc 33.2 g/dl (32-36); Mean Corpuscular Hemoglobin 31.4 pg (26-34); Mean Corpuscular Volume 94.5 fl (80-100); Mean Platelet Volume 10.2 fl (7.4-10.4); Monocytes Absolute Auto 0.3 K/mm3 (0.1-0.6); Monocytes Percent Auto 2.1 % (2.6-8.5); Neutrophils Absolute Auto 12.4 K/mm3 (1.3-6.7); Neutrophils Percent Auto 87.3 % (45.5-73.1); Platelet Count Result 313 k/mm3 (150-375); Red Blood Count 4.75 M/mm3 (4.2-5.4); Red Cell Distribution Width 13.2 % (11.5-14.5); White Blood Count 14.2 K/mm3 (4.5-10.0)
[2022-08-22 06:16] LABS: Alanine Aminotransferase 18 U/L (6-35); Albumin Level 3.7 g/dL (3.5-5.1); Alkaline Phosphatase 57 U/L (38-126); Anion Gap 4 mmol/L (8-16); Aspartate Amino Transferase 13 U/L (14-36); Bilirubin,Total 0.4 mg/dL (0.2-1.3); Blood Urea Nitrogen 14 mg/dL (7-17); Calcium 8.7 mg/dL (8.4-10.2); Carbon Dioxide 20 mmol/L (22-30); Chloride 111 mmol/L (98-107); Estimated CRCL calculation 111 ml/min; Estimated Glomerular Filt Rate > 60; Glucose 120 mg/dL (65-110); Potassium 4.1 mmol/L (3.4-5.0); Sodium 135 mmol/L (137-145)
[2022-08-22 08:48] VITALS: PULSE 60; PULSE 72; RESP 18; O2SAT 95
[2022-08-22 09:04] VITALS: PULSE 77; RESP 18
[2022-08-22] MEDS: AZITHROMYCIN 250 MG TABLET PO (09:06)
[2022-08-22] MEDS: methylPREDNISolone SOD SUCC 40 MG VIAL IV PUSH (09:06)
--- NOTE | 2022-08-22 12:29 | PM.DS ---
DS: Admitting Diagnosis Discharge Date 08/22/22 Admitting Diagnosis asthma exacerbation DS: Discharge Diagnosis Discharge Diagnosis (1) Asthma exacerbation: Qualifiers: Asthma persistence: unspecified Asthma severity: unspecified severity Qualified Code(s): J45.901 - Unspecified asthma with (acute) exacerbation Code(s): J45.901 - Unspecified asthma with (acute) exacerbation Status: Acute Assessment and Plan: Patient presents to the ED with shortness of breath. Patient requiring supplemental oxygen. Chest x-ray with mild atelectasis in the right mid lower lung zones and left lower lung zone. No evidence of pneumonia. Patient requiring 4 L of supplemental oxygen. Patient on room air normally. Wean oxygen to maintain O2 saturation greater than 90. IV Solu-Medrol 60 mg Q 8 hours. Azithromycin 500 mg day 1 and 250 mg after that for 4 days. Singulair daily DuoNebs every 6 hours scheduled. 08/21/22 Patient is still wheezing quite a bit although she is feeling much better today. Will deescalate Solu-Medrol to every 12 hours and patient continues to feel well she can be discharged home on p.o. prednisone tomorrow Patient no longer requiring supplemental oxygen. 08/22/22 patient doing well today. Patient's wheezing much improved and patient is asymptomatic. Patient to continue p.o. prednisone and azithromycin for a total of 5 days as an outpatient. DS: Summary Hospital Course Reason for hospitalization: Asthma exacerbation Hospital Course: 37-year-old female presents to the ED on 08/20/2022 with shortness of breath, wheezing and a cough. Patient had been using her home inhalers and nebulizer more frequently without relief. Patient does live at home with 3 kids and states that they are sick on and off all throughout the winter. Patient's cough began 2 days for ED arrival and she describes as nonproductive. Patient's COVID and flu test negative. Chest x-ray revealed mild atelectasis of the right mid and lower lung zones in the left lower lung zone. Upon admission patient was requiring 4 L of oxygen and this was weaned down to sustain an O2 saturation above 90. Patient was started on DuoNebs and IV Solu-Medrol as well as a Z-Jose. Over 2 days patient is shortness of breath improved and she no longer is requiring oxygen. Patient's steroids taper down and plan to continue them for five days of outpatient therapy. Patient is still mildly wheezy but she is asymptomatic and very adamant about being discharged. Discussed with patient that it is important that she continue the steroid and azithromycin for the full course of treatment. Patient verbalized her understanding and will be discharged home. Time Spent with Patient Time attestation: Total time spent providing and/or coordinating discharge services: Exam Narrative: GENERAL: Comfortable, no acute distress HENMT: moist mucous membranes EYES: EOM intact b/l NECK: no lymphadenopathy RESPIRATORY: Mild expiratory wheezes, improved CARDIO: RRR GI: soft, nontender, bowel sounds present SKIN: no rashes EXTREMITIES: no edema, redness or tenderness DS: Data Data Completed and Pending Labs on day of discharge: Labs from last 24 hours 08/22/22 08/22/22 05:36 05:36 WBC 14.2 H RBC 4.75 Hgb 14.9 Hct 44.9 MCV 94.5 MCH 31.4 MCHC 33.2 RDW 13.2 Plt Count 313 MPV 10.2 Immature Gran % (Auto) 0.6 H Neut % (Auto) 87.3 H Lymph % (Auto) 9.9 L Elbert % (Auto) 2.1 L Eos % (Auto) 0.0 Baso % (Auto) 0.1 L Lymph # (Auto) 1.41 Elbert # (Auto) 0.3 Eos # (Auto) 0.0 Baso # (Auto) 0.0 Abs Immat Gran (auto) 0.09 H Absolute Neuts (auto) 12.4 H Absolute Nucleated RBC 0.0 Nucleated RBC % 0.0 Sodium 135 L Potassium 4.1 Chloride 111 H Carbon Dioxide 20 L Anion Gap 4 L BUN 14 Creatinine 0.90 Estim Creat Clear Calc 111 Estimated GFR > 60 Glucose 120 H Calcium 8.7 Total Bili
== END 2022-08-22 13:35 | disposition home or self-care (01) | DRG 202 ==
LOC: ANHED 08-20 03:08 → ANH3MEDSUR 08-20 04:11
PROVIDERS: Admitting Provider Internal Medicine; Emergency Provider Physician Assistant; PCP Nurse Practitioner Family; Visit Provider Internal Medicine Critical Care Medicine
DX: J45.901 Unspecified asthma with (acute) exacerbation (principal); Z68.41 Body mass index [BMI] 40.0-44.9, adult; Z20.822 Contact with and (suspected) exposure to COVID-19; E66.01 Morbid (severe) obesity due to excess calories
CPT/HCPCS: 36415; 71046; 80053; 84484; 85025; 87636; 93005; 94640; 96361; 96365; 96375; 96376; 99285; A9270; G0378; J0131; J2920; J2930; J3475; J7030